=== PATIENT | female | born 1940 | race Caucasian/White ===

== ENCOUNTER → 2017-05-09 | Outpatient (CLI) | payer BC ==
[~2017-05-09] MED LIST: ASCA500 PO; ASPI1TAB83 PO; CETICHW4 PO; CHOLTAB3 PO; COQ10100 PO; EVEN500C2 PO; IPRA0.037 NAE; LEVO100T48 PO; MEGA B COMPLEX PO; OAT BRAN PO; OMEG10007 PO; TAMO20TA47 PO; VITA400C15 PO; [UNRECOGNIZED DRUG - OTHER] PO; lecithin PO; selenium PO
[2017-05-09 10:31] LABS: BASO ABS # 0.05 K/uL (0-0.2); COMPLETE YES; EOS % 1.8 %; HEMATOCRIT 39.9 % (37-47); LYMPH % 34.3 %; MEAN CELL VOLUME 95.9 fL (80-100); MEAN CORPUSCULAR HEMOGLOBIN 31.7 pg (25-34); MEAN CORPUSCULAR HGB CONC 33.1 g/dl (32-36); MONO % 7.1 %; NEUT % 55.8 %; PLATELET COUNT 160 K/uL (130-400); RED BLOOD COUNT 4.16 M/uL (4.2-5.4); WHITE BLOOD COUNT 4.95 K/uL (4.8-10.8)
[2017-05-09 10:58] LABS: ESTIMATED AVERAGE GLUCOSE 120 mg/dl; HA1C FLAG Normal (Normal)
[2017-05-09 11:04] LABS: ALB/GLOB RATIO 1.2 (0.9-2); ALKALINE PHOSPHATASE 109 U/L (45-117); ALT/SGPT 22 U/L (12-78); AST/SGOT 14 U/L (15-37); BLOOD UREA NITROGEN 13 mg/dl (7-18); BUN/CREATININE RATIO 23.1 (10-20); CALCIUM 8.6 mg/dl (8.5-10.1); CARBON DIOXIDE 29 mmol/L (21-32); CHLORIDE 110 mmol/L (98-107); CHOLESTEROL 197 mg/dl (0-200); CHOLESTEROL/HDL RATIO 3.5; CREATININE 0.57 mg/dl (0.60-1.20); GLUCOSE 106 mg/dl (70-99); HDL CHOLESTEROL 57 mg/dl; LDL CHOLESTEROL CALCULATED 129 mg/dl; POTASSIUM 4.2 mmol/L (3.5-5.1); SODIUM 143 mmol/L (136-145); TRIGLYCERIDES 56 mg/dl (0-150); URIC ACID 4.2 mg/dl (2.6-7.2); VERY LOW DENSITY LIPOPROT CALC 11 mg/dl
[2017-05-09 11:11] LABS: TOTAL IRON BINDING CAPACITY 329 mcg/dl (250-450)
== END | disposition home or self-care (01) ==
LOC: C.LAB 09:46
PROVIDERS: ATTEND Family Medicine
DX: R73.09 Other abnormal glucose (principal); E55.9 Vitamin D deficiency, unspecified; D51.9 Vitamin B12 deficiency anemia, unspecified; E78.9 Disorder of lipoprotein metabolism, unspecified; R53.83 Other fatigue

== ENCOUNTER 2023-06-22 10:01 | Inpatient (IN) ==
[2023-06-22 11:39] LABS: Basophils # (auto) 0.03 K/uL (0.00-0.20); Basophils % (auto) 0.3 %; Hematocrit (blood only) 45.5 % (37.0-47.0); Hemoglobin 15.4 g/dl (12.0-16.0); Immature Granulocytes # (auto) 0.03 K/uL (0.01-0.20); Immature Granulocytes % (auto) 0.3 %; Lymphocytes # (auto) 1.43 K/uL (1.20-3.40); Lymphocytes % (auto) 13.5 %; Mean Corpuscular Hemoglobin 32.2 pg (25.0-34.0); Mean Corpuscular Hgb Conc 33.8 g/dL (32.0-36.0); Mean Corpuscular Volume 95.2 fL (80.0-100.0); Mean Platelet Volume 10.2 fL (9.4-12.4); Monocytes # (auto) 1.15 K/uL (0.11-0.59); Monocytes % (auto) 10.9 %; Neutrophils # (auto) 7.95 K/uL (1.40-6.50); Platelet Count 204 K/uL (130-400); RDW Coefficient of Variation 12.5 % (11.5-14.5); RDW Standard Deviation 43.9 fL (36.4-46.3); Red Blood Count 4.78 M/uL (4.20-5.40); White Blood Count 10.59 K/ul (4.8-10.8)
[2023-06-22 11:54] LABS: Albumin Globulin Ratio 1.4 (0.9-2); Albumin Level 4.4 gm/dl (3.4-5.0); BUN Creatinine Ratio 35.2 (10-20); Bilirubin,Total 0.7 mg/dl (0.2-1.0); Calcium 9.8 mg/dl (8.6-10.3); Creatinine Clr Calc Pharmacy 46.1 ml/min; Est GFR (African American) 69.1 ml/min; Est GFR (Non-African American) 59.6 ml/min; Globulin 3.2 gm/dl (2.5-4.0); Potassium 4.1 mmol/L (3.5-5.1); Total Protein 7.6 gm/dl (6.0-8.3)
[2023-06-22] MEDS ORDERED: ONDANSETRON INJ 2 MG/ML 2 ML VIAL IV STA (11:59)
[2023-06-22] MEDS ORDERED: SODIUM CHLORIDE 0.9% 1,000 ML IV ONE (11:59)
--- NOTE | 2023-06-22 12:02 | Emergency Department Note ---
Impression & Plan SBO (small bowel obstruction) ADMIT ED Provider Note HPI: History obtained from patient. The patient is a 82-year-old female who presents emergency department with chief complaint of nausea and vomiting as well as mid abdominal pain has been ongoing since Friday evening. Patient states that she has not had much to eat or drink since because she has not been interested secondary to her nausea. Patient states she is having regular bowel movements. On arrival here to the ED, the patient is in no acute distress. She is hemodynamically stable. Admits to surgical history of cholecystectomy as well as right-sided ovary removal secondary to a torsion years ago. Patient denies any chest pain or shortness of breath. Patient is saturating well on room air on arrival, she is afebrile on arrival. ROS: - Per HPI Differential Diagnosis: Small bowel obstruction, diverticulitis, kidney stone, acute appendicitis, viral gastroenteritis, acute gastritis, acute pancreatitis, amongst other potential pathologies. *Outpatient medications and allergy history reviewed. 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 Lab work shows no leukocytosis, hemoglobin is normal, platelet count is normal, CMP does not show any critical findings, BUN is mildly elevated at 32, lactic acid is normal, lipase is normal. CT imaging of the abdomen pelvis was obtained that shows evidence of a high-grade small bowel obstruction with transition point in the right lower quadrant. I discussed this with the patient and her family member at the bedside, recommended admission to the medicine service with surgical consultation and placement of NG tube. Patient is in agreement. NG tube was placed by the bedside RN, x-ray imaging shows NG tube terminating near the GE junction and therefore will be advanced 5 cm. Case was discussed with the on-call hospitalist, Dr. Chu, who is in agreement for admission of the patient. Case was also discussed with general surgery, Dr. Monsivais, who is in agreement with this plan and for routine consultation. Patient was placed for admission in stable condition. Consultants/Discussions held with other healthcare providers: -Hospitalist, Dr. Chu -General surgery, Dr. Monsivais Disposition discussion held by myself with: -Patient Diagnosis: 1. Small bowel obstruction, acute 2. Nausea and vomiting, acute 3. Elevated BUN, acute Disposition: Admission Stuart Dial DO Emergency Medicine Past Med/Surg History Medical History (Updated 06/22/23 @ 15:30 by Stuart Dial DO) Contact dermatitis History of tobacco abuse Abnormal finding on lung imaging Thickened endometrium Postmenopausal bleeding Abnormal mammogram Uterine leiomyoma Positive colorectal cancer screening using Cologuard test Ovarian cyst HX OF Hypothyroidism Cancer RT BREAST CANCER Anxiety Sleep apnea BIPAP Surgical History (Updated 06/22/23 @ 15:15 by Khalif Austin PA-C) Hx of cataract surgery History of endoscopic sinus surgery History of bilateral tubal ligation History of mastectomy RT History of open reduction and internal fixation (ORIF) procedure RT H/O oophorectomy RT History of colonoscopy History of cholecystectomy History of thyroidectomy, total History of tooth extraction Family History Grandfather (Paternal) Diabetes Aunt Breast cancer Mother Cerebral artery occlusion Heart disease Father Alcohol abuse Brother Diabetes Myocardial infarction, Onset Age: 47 Denies family history of Ovarian cancer Prostate cancer Lung cancer Colorectal cancer Lung disease Stroke Social History (Updated 04/15/23 @ 11:35 by Cary Mann LPN) Smoking Status: Former smoker Tobacco Type: Cigarettes Age Started Using Tobacco: 21; Age Quit Using Tobacco: 65; Second Hand Exposure: No; Do You Dip or Chew Tobacco: No; Hx Alcohol Use: Yes Alcohol type: wine Alcohol Intake Frequency: 4 or More x per/Week Hx Substance Use: No Preferred Language: Cuban Communication Ability: Effective Visual Impairment: Limited Hearing Ability: Normal [place] Required: No Beliefs That Will Affect Care: None marital status: Current Living Situation: Alone current occupational status: retired How many Children do You have: 3 Feels Safe at Home: Yes Childhood Exposure to Second-Hand Smoke: Yes Diet: regular caffeine: Yes (2 cups of coffee daily ) Dental Care, Regularly: No Physical Activity Frequency: Daily Seatbelt Use: always Sunscreen Use: No Assistive Devices: BiPap, Denture - Upper, Denture - Lower and Glasses Allergies Allergies Allergy/AdvReac Type Severity Reaction Status Date / Time chocolate flavor AdvReac Mild HEADACHE/DI Verified 06/04/23 14:01 ARRHEA cat dander AdvReac Verified 06/04/23 14:01 dog dander AdvReac Verified 06/04/23 14:01 grass pollen AdvReac Verified 06/04/23 14:01 mold AdvReac Verified 06/04/23 14:01 tree and shrub pollen AdvReac Verified 06/04/23 14:01 Home Meds Home Medications Medication Instructions Recorded Confirmed Lactobacillus acidophilus 10 1 cap PO DAILY 08/07/18 06/22/23 billion cell capsule (Probiotic) cetirizine 10 mg tablet (Zyrtec) 10 mg PO DAILY PRN NEEDED 08/07/18 06/22/23 coQ10 (ubiquinol) 100 mg capsule 100 mg PO DAILY 08/07/18 06/22/23 evening primrose oil 500 mg capsule 500 mg PO DAILY 08/07/18 06/22/23 lecithin 1,200 mg capsule 1,200 mg PO DAILY 08/07/18 06/22/23 omega 5-pke-sbi-fish oil 1,000 mg 1 cap PO DAILY 08/07/18 06/22/23 (120 mg-180 mg) capsule (Fish Oil) resveratrol 50 mg capsule 1 cap PO DAILY 08/07/18 06/22/23 selenium 200 mcg capsule 200 mcg PO DAILY 08/07/18 06/22/23 ascorbic acid (vitamin C) 500 mg 500 mg PO DAILY 05/06/22 06/22/23 tablet (Vitamin C) cholecalciferol (vitamin D3) 50 50 mcg PO DAILY 05/06/22 06/22/23 mcg (2,000 unit) capsule cyanocobalamin (vitamin B-12) 2,500 mcg sublingual WK 05/06/22 06/22/23 2,500 mcg sublingual tablet aspirin 81 mg tablet,delayed 81 mg PO HS 04/15/23 06/22/23 release (Aspir-Low) red yeast rice 600 mg capsule 600 mg PO 4XD 04/15/23 06/22/23 fluticasone propionate 50 2 spray intranasal HS 06/22/23 06/22/23 mcg/actuation nasal spray,suspension (Flonase Allergy Relief) Previous Rx's Medication Instructions Recorded levothyroxine 100 mcg tablet 100 mcg PO DAILY #90 tabs 12/16/22 blood pressure monitor (Blood #1 ea 06/09/23 Pressure Kit) Results & Data (ED) Vital Signs Vital Signs - 24 hr 06/22/23 11:02 Temperature 37.2 C Temperature Source Temporal Artery Scan Pulse Rate 88 Respiratory Rate 18 Blood Pressure 157/87 H Blood Pressure Mean 110 Pulse Oximetry 95 Oxygen Delivery Method Room Air Sepsis New/Unexplained Change in Mental Status No Sepsis Action Taken by Nursing No Action Required Laboratory Data 06/22/23 11:15 06/22/23 11:15 Lab Results 06/22/23 06/22/23 Range/Units 11:15 13:19 WBC 10.59 (4.8-10.8) K/ul RBC 4.78 (4.20-5.40) M/uL Hgb 15.4 (12.0-16.0) g/dl Hct 45.5 (37.0-47.0) % MCV 95.2 (80.0-100.0) fL MCH 32.2 (25.0-34.0) pg MCHC 33.8 (32.0-36.0) g/dL RDW Std Deviation 43.9 (36.4-46.3) fL RDW Coeff of Julita 12.5 (11.5-14.5) % Plt Count 204 (130-400) K/uL MPV 10.2 (9.4-12.4) fL Immature Gran % (Auto) 0.3 % Neut % (Auto) 75.0 % Lymph % (Auto) 13.5 % [place] % (Auto) 10.9 % Eos % (Auto) 0.0 % Baso % (Auto) 0.3 % Neut # (Auto) 7.95 H (1.40-6.50) K/uL Lymph # (Auto) 1.43 (1.20-3.40) K/uL [place] # (Auto) 1.15 H (0.11-0.59) K/uL Eos # (Auto) 0.00 (0.00-0.50) K/uL Baso # (Auto) 0.03 (0.00-0.20) K/uL Immature Gran # (Auto) 0.03 (0.01-0.20) K/uL Sodium 138 (136-145) mmol/L Potassium 4.1 (3.5-5.1) mmol/L Chloride 100 (98-107) mmol/L Carbon Dioxide 28 (21-32) mmol/L Anion Gap 10 (3-11) BUN 32 H (6-23) mg/dl Creatinine 0.91 (0.6-1.2) mg/dl Est Cr Clr Drug Dosing 46.1 ml/min Est GFR ( Amer) 69.1 ml/min Est GFR (Non-Af Amer) 59.6 ml/min BUN/Creatinine Ratio 35.2 H (10-20) Glucose 139 H (70-99(Fasting)) mg/dl Lactate 1.5 (0.4-2.0) mmol/L Calcium 9.8 (8.6-10.3) mg/dl Total Bilirubin 0.7 (0.2-1.0) mg/dl AST 19 (13-39) U/L ALT 13 (7-52) U/L Alkaline Phosphatase 115 H (34-104) U/L Total Protein 7.6 (6.0-8.3) gm/dl Albumin 4.4 (3.4-5.0) gm/dl Globulin 3.2 (2.5-4.0) gm/dl Albumin/Globulin Ratio 1.4 (0.9-2) Lipase 11 (11-82) U/L Administered Medications Discontinued Medications Sodium Chloride (Nss) 1,000 mls @ 999 mls/hr IV .Q1H1M ONE Stop: 06/22/23 12:59 Last Infusion: 06/22/23 13:43 Dose: Infused Documented By: Admin: 06/22/23 12:08 Dose: 999 mls/hr Documented By: EMILY Ioversol (Optiray 320 100ml) 94 ml IV ONCE ONE Stop: 06/22/23 12:34 Last Admin: 06/22/23 12:36 Dose: 94 ml Documented By: JUNITO Ondansetron HCl (Ondansetron Inj 2 Mg/Ml 2 Ml Vial) 4 mg IV NOW STA Stop: 06/22/23 12:00 Last Admin: 06/22/23 12:08 Dose: 4 mg Documented By: EMILY Imaging Data Radiologist's Impression: Abdomen/Pelvis CT 06/22/23 12:[address] WITH IV CONTRAST CT DOSE: 924.39 mGy.cm HISTORY: mid abd pain, N/V x 2 days TECHNIQUE: Multiaxial CT images of the abdomen and pelvis were performed following the use of intravenous contrast. A dose lowering technique was utilized adhering to the principles of ALARA. COMPARISON STUDY: None. FINDINGS: Emphysema and mild dependent changes seen at the lung bases. Small fat-containing bilateral Bochdalek hernias are noted. A few tree-in-bud nodular opacities within the right lower lobe suggestive of a low-grade bronchiolitis. No pneumoperitoneum. No pneumatosis. No acute fractures identified. There is a partially visualized right breast implant. Mild circumferential thickening of the distal esophagus with a small hiatus hernia. This favors a mild esophagitis. There are 2 diverticula within the duodenum measuring up to 4.6 cm. Multiple dilated loops of proximal to mid small bowel containing gas and fluid. There is associated mild mesenteric edema within the dilated loops of small bowel. These measure up to 4 cm in diameter. Focal transition point within the proximal ileum at the right lower quadrant on image 233. Therefore, this is consistent with a small bowel obstruction. The exact etiology of the transition point is not clearly identified and could be due to adhesions or possibly an internal hernia. The mid to distal ileal loops are decompressed beyond the transition point. Trace pelvic free fluid. Bladder wall thickening may be due to underdistention. Partially calcified uterine fibroids are noted. Colonic diverticulosis. No evidence for acute diverticulitis. Normal appendix. Prior cholecystectomy. The liver, spleen, adrenal glands, pancreas, and kidneys are within normal limits. A 4 mm stone versus contrast within the lower pole of the right renal collecting system. No hydronephrosis. The main portal vein is patent. Focal narrowing of approximately 60% within the superior mesenteric vein on image 121. Calcified plaque within the normal caliber abdominal aorta. Atherosclerotic disease versus an old focal chronic dissection within the mid abdominal aorta. IMPRESSION: 1. High-grade small bowel obstruction with the transition point located within the right lower quadrant as described above. 2. Mild circumferential thickening of the distal esophagus suggestive of a mild esophagitis. 3. Possible right-sided nephrolithiasis. No ureteral stones. No hydronephrosis. 4. Normal appendix. 5. Colonic diverticulosis. No evidence for acute diverticulitis. 6. Mild mesenteric edema and trace pelvic free fluid. 7. Prior cholecystectomy. 8. Additional findings as described above. ACT 112: Negative or not required by law. Electronically signed by: Khalif Snow M.D. 06/22/2023 12:52 PM KUB X-Ray 06/22/23 13:51 KUB HISTORY: NG Tube Placement COMPARISON: Abdomen and pelvis CT 06/22/2023. FINDINGS: Dilated loops of small bowel again noted consistent the patient's small bowel obstruction. Prior cholecystectomy. Nasogastric tube terminates at the expected location of the gastroesophageal junction. This should be advanced by approximately 5 to 10 cm. No renal calculi. No ureteral calculi. No pneumoperitoneum or pneumatosis. IMPRESSION: 1. Nasogastric tube terminates at the gastroesophageal junction. This should be advanced by approximately 5 to 10 cm. 2. Small bowel obstruction again noted. ACT 112: Negative or not required by law. Electronically signed by: Khalif Snow M.D. 06/22/2023 2:27 PM Discharge Plan Visit Data Chief Complaint: Vomiting Stated Complaint: VOMITING ED Provider: Stuart Dial Discharge Problem: SBO (small bowel obstruction) Forms Stand Alone Forms: [facility] Prescriptions Prescriptions: No Action levothyroxine 100 mcg tablet 100 mcg PO DAILY Qty: 90 3RF (DME) blood pressure monitor [Blood Pressure Kit] Kit See Rx Instructions .Route Qty: 1 0RF Rx Instructions: As directed cholecalciferol (vitamin D3) 50 mcg (2,000 unit) capsule 50 mcg PO DAILY evening primrose oil 500 mg Capsule 500 mg PO DAILY cetirizine [Zyrtec] 10 mg Tablet 10 mg PO DAILY PRN (Reason: NEEDED) lecithin 1,200 mg Capsule 1,200 mg PO DAILY omega 2-vry-jmc-fish oil [Fish Oil] 1,000 mg (120 mg-180 mg) Capsule 1 cap PO DAILY selenium 200 mcg Capsule 200 mcg PO DAILY resveratrol 50 mg Capsule 1 cap PO DAILY coQ10 (ubiquinol) 100 mg Capsule 100 mg PO DAILY Probiotic 10 billion cell Capsule 1 cap PO DAILY ascorbic acid (vitamin C) [Vitamin C] 500 mg tablet 500 mg PO DAILY cyanocobalamin (vitamin B-12) 2,500 mcg tablet, sublingual 2,500 mcg SUBLINGUAL WK aspirin [Aspir-Low] 81 mg tablet,delayed release (DR/EC) 81 mg PO HS Rx Instructions: 3 times a week red yeast rice 600 mg capsule 600 mg PO 4XD fluticasone propionate [Flonase Allergy Relief] 50 mcg/actuation spray,suspension 2 spray INTRANASAL HS Referrals Referrals: Martinez Nogueira MD [Primary Care Provider] -
[2023-06-22] MEDS ORDERED: OPTIRAY 320 100ml IV ONE (12:33)
--- NOTE | 2023-06-22 12:54 | CT Scan Report ---
ABDOMEN AND PELVIS CT WITH IV CONTRAST CT DOSE: 924.39 mGy.cm HISTORY: mid abd pain, N/V x 2 days TECHNIQUE: Multiaxial CT images of the abdomen and pelvis were performed following the use of intrave nous contrast. A dose lowering technique was utilized adhering to the principles of ALARA. COMPARISON STUDY: None. FINDINGS: Emphysema and mild dependent changes seen at the lung bases. Small fat-containing bilateral Bochdalek hernias are noted. A few tree-in-bud nodular opacities within the right lower lobe suggest keith of a low-grade bronchiolitis. No pneumoperitoneum. No pneumatosis. No acute fractures identified. There is a partially visualized right breast implant. Mild circumferential thickening of the distal esophagus with a small hiatus hernia. This favors a mild esophagitis. There are 2 diverticula within the duodenum measuring up to 4.6 cm. Multiple dilated loops of proximal to mid small bowel containing gas and fluid. There is associated mild mesenteric edema within the dilated loops of small bowel. Th david measure up to 4 cm in diameter. Focal transition point within the proximal ileum at the right low er quadrant on image 233. Therefore, this is consistent with a small bowel obstruction. The exact marlen ology of the transition point is not clearly identified and could be due to adhesions or possibly an internal hernia. The mid to distal ileal loops are decompressed beyond the transition point. Trace pe lvic free fluid. Bladder wall thickening may be due to underdistention. Partially calcified uterine f ibroids are noted. Colonic diverticulosis. No evidence for acute diverticulitis. Normal appendix. Theresa or cholecystectomy. The liver, spleen, adrenal glands, pancreas, and kidneys are within normal limits . A 4 mm stone versus contrast within the lower pole of the right renal collecting system. No hydrone phrosis. The main portal vein is patent. Focal narrowing of approximately 60% within the superior mes enteric vein on image 121. Calcified plaque within the normal caliber abdominal aorta. Atheroscleroti c disease versus an old focal chronic dissection within the mid abdominal aorta. IMPRESSION: 1. High-grade small bowel obstruction with the transition point located within the right lower quadra nt as described above. 2. Mild circumferential thickening of the distal esophagus suggestive of a mild esophagitis. 3. Possible right-sided nephrolithiasis. No ureteral stones. No hydronephrosis. 4. Normal appendix. 5. Colonic diverticulosis. No evidence for acute diverticulitis. 6. Mild mesenteric edema and trace pelvic free fluid. 7. Prior cholecystectomy. 8. Additional findings as described above. ACT 112: Negative or not required by law. Electronically signed by: Khalif Snow M.D. 06/22/2023 12:52 PM
--- NOTE | 2023-06-22 13:53 | History & Physical Report ---
Date of Service June 22, 2023 Assessment & Plan (1) Small bowel obstruction: Plan: Mid abdominal pain, nausea, and vomiting since Wednesday 06/20 Last BM on Thursday 06/21 CT abdomen/pelvis on arrival revealed high-grade SBO No leukocytosis; afebrile Lactate WNL at 1.5 Lipase WNL at 11 General surgery consulted; nonoperative management for now No indications for immediate surgical intervention such as bowel ischemia, bowel volvulus, necrosis, or perforation Keep on heparin for DVT PPx in the event that surgical intervention is necessary Keep n.p.o.; hold p.o. meds NG tube placed in the ED Advance NG tube as indicated with KUB post-advancement Procalcitonin, CRP pending (to be used as biomarkers for nonoperative management) ?Consider Gastrografin; therapeutic/diagnostic Fluid resuscitation with LR Electrolytes WNL; keep K>4, Mag>2 Prophylactic abx not indicated at this time Zofran 4 mg IV q6h as needed for nausea; QTc 416 A.m. CBC, BMP, CRP, Mag (2) VALENTIN (obstructive sleep apnea): Plan: Patient reports using CPAP at night with a full facemask No other at home oxygen use Continue Flonase prior to CPAP usage (3) Hypertension: Plan: BP 157/87 at time of admission Not on antihypertensives at home PCP recently asked her to use an at-home BP cuff given increased readings in the outpatient setting Hydralazine 2.5mg IV q6h as needed for SBP >180 (4) Hypothyroidism: Plan: Hold levothyroxine (5) History of mastectomy: Plan: Right-sided mastectomy in 2010 No BP, labs, blood work in right arm Plan Disposition: Admit to [facility] Full code Keep n.p.o. VTE PPx: Heparin 5000u q12h History of Present Illness Chief Complaint: Vomiting Primary Care Provider: Martinez Nogueira MD Mae is an 82-year-old female with PMH of HTN, breast cancer, hypothyroidism, HLD, osteopenia, VALENTIN, right-sided ovarian torsion, s/p cholecystectomy, and COPD with emphysema. She presented for abdominal pain and multiple episodes of vomiting since Friday evening 06/20. She reports that she felt stomach discomfort after eating lunch on Friday, and then started vomiting that evening. She reports no blood in the vomit, but says it was a "dark brown color". She has not been taking her usual medications due to nausea and vomiting. No morning medications. She has not been tolerating solids/liquids; however she has been tolerating sips of water. She does not endorse abdominal pain, but describes it as "discomfort" and cramping in the periumbilical region. Last BM was yesterday 06/21, and she reports that she has had 3 bowel movements between Friday and Friday. She does not know if she is passing gas regularly. She does not feel bloated. No radiation of pain to the flanks, back, or down the legs. If she had to rate her intermittent stomach discomfort she says it is a 5/10. Burping alleviates some of the tension. No sick contacts this past week. She reports using the CPAP at night with a full facemask. No other at home oxygen use. She denies smoking and tobacco use. She endorses mild alcohol use, 1 glass of wine/day. Patient is afebrile and hemodynamically stable at time of admission. ED course: Zofran 4 mg IV NSS 1000 mL ROS: Patient endorses mild fever (on Thursday 06/21 99.3), abdominal cramping/discomfort Patient denies headache, dizziness, CP, chest palpitations, pleuritic CP, hematemesis, diarrhea, blood in stool/urine, burning with urination, urinary s/s, urinary retention, saddle anesthesia, or numbness/tingling/pain in the legs. PMH of cholecystectomy, right ovarian torsion, right-sided mastectomy in 2010 No PMH of appendectomy, hernias, kidney stones, C-sections, CA, DVT/PE, CVA, or diabetes. Allergies Allergy/AdvReac Type Severity Reaction Status Date / Time chocolate flavor AdvReac Mild HEADACHE/DI Verified 06/04/23 14:01 ARRHEA cat dander AdvReac Verified 06/04/23 14:01 dog dander AdvReac Verified 06/04/23 14:01 grass pollen AdvReac Verified 06/04/23 14:01 mold AdvReac Verified 06/04/23 14:01 tree and shrub pollen AdvReac Verified 06/04/23 14:01 Home Medications Medication Instructions Recorded Confirmed Type Lactobacillus acidophilus 10 1 cap PO DAILY 08/07/18 06/22/23 History billion cell capsule (Probiotic) cetirizine 10 mg tablet (Zyrtec) 10 mg PO DAILY PRN NEEDED 08/07/18 06/22/23 History coQ10 (ubiquinol) 100 mg capsule 100 mg PO DAILY 08/07/18 06/22/23 History evening primrose oil 500 mg capsule 500 mg PO DAILY 08/07/18 06/22/23 History lecithin 1,200 mg capsule 1,200 mg PO DAILY 08/07/18 06/22/23 History omega 0-uzn-jfl-fish oil 1,000 mg 1 cap PO DAILY 08/07/18 06/22/23 History (120 mg-180 mg) capsule (Fish Oil) resveratrol 50 mg capsule 1 cap PO DAILY 08/07/18 06/22/23 History selenium 200 mcg capsule 200 mcg PO DAILY 08/07/18 06/22/23 History ascorbic acid (vitamin C) 500 mg 500 mg PO DAILY 05/06/22 06/22/23 History tablet (Vitamin C) cholecalciferol (vitamin D3) 50 50 mcg PO DAILY 05/06/22 06/22/23 History mcg (2,000 unit) capsule cyanocobalamin (vitamin B-12) 2,500 mcg sublingual WK 05/06/22 06/22/23 History 2,500 mcg sublingual tablet levothyroxine 100 mcg tablet 100 mcg PO DAILY #90 tabs 12/16/22 06/22/23 Rx aspirin 81 mg tablet,delayed 81 mg PO HS 04/15/23 06/22/23 History release (Aspir-Low) red yeast rice 600 mg capsule 600 mg PO 4XD 04/15/23 06/22/23 History blood pressure monitor (Blood #1 ea 06/09/23 06/22/23 Rx Pressure Kit) fluticasone propionate 50 2 spray intranasal HS 06/22/23 06/22/23 History mcg/actuation nasal spray,suspension (Flonase Allergy Relief) Past Med/Surg History Medical History (Updated 06/22/23 @ 15:30 by Stuart Dial DO) Contact dermatitis History of tobacco abuse Abnormal finding on lung imaging Thickened endometrium Postmenopausal bleeding Abnormal mammogram Uterine leiomyoma Positive colorectal cancer screening using Cologuard test Ovarian cyst HX OF Hypothyroidism Cancer RT BREAST CANCER Anxiety Sleep apnea BIPAP Surgical History (Updated 06/22/23 @ 15:15 by Khalif Austin PA-C) Hx of cataract surgery History of endoscopic sinus surgery History of bilateral tubal ligation History of mastectomy RT History of open reduction and internal fixation (ORIF) procedure RT H/O oophorectomy RT History of colonoscopy History of cholecystectomy History of thyroidectomy, total History of tooth extraction Family History Grandfather (Paternal) Diabetes Aunt Breast cancer Mother Cerebral artery occlusion Heart disease Father Alcohol abuse Brother Diabetes Myocardial infarction, Onset Age: 47 Denies family history of Ovarian cancer Prostate cancer Lung cancer Colorectal cancer Lung disease Stroke Social History (Updated 04/15/23 @ 11:35 by Cary Mann LPN) Smoking Status: Former smoker Tobacco Type: Cigarettes Age Started Using Tobacco: 21; Age Quit Using Tobacco: 65; Second Hand Exposure: No; Do You Dip or Chew Tobacco: No; Hx Alcohol Use: Yes Alcohol type: wine Alcohol Intake Frequency: 4 or More x per/Week Hx Substance Use: No Preferred Language: Romanian Communication Ability: Effective Visual Impairment: Limited Hearing Ability: Normal Club Car Attendant Required: No Beliefs That Will Affect Care: None marital status: Current Living Situation: Alone current occupational status: retired How many Children do You have: 3 Feels Safe at Home: Yes Childhood Exposure to Second-Hand Smoke: Yes Diet: regular caffeine: Yes (2 cups of coffee daily ) Dental Care, Regularly: No Physical Activity Frequency: Daily Seatbelt Use: always Sunscreen Use: No Assistive Devices: CPAP Review of Systems Review of Systems: See HPI above Physical Exam Physical Exam: General: no acute distress; anxious; NG tube in place; non-toxic appearing; cooperative; 95% on RA HEENT: normocephalic, atraumatic; no scleral icterus; PERRLA w/ EOMs intact; moist mucus membrane; vision and hearing grossly intact Neck: supple; no JVD; no lymphadenopathy; trachea midline Skin: warm, dry without signs of tenting; no cyanosis; no rashes, bruising, lesions, or erythema noted CV: chest wall NTP; RRR; S1/S2 normal; no murmurs/rubs/gallops; pulses intact and symmetric at radial, DP, and PT Lungs: no acute respiratory distress; symmetrical chest wall expansion; clear breath sounds across all lung casper w/o adventitious sounds; no wheezing ABD: Soft, NTP; BS present in all 4 quadrants; no rebound/guarding; no ascites; mild generalized distention; no bruising or signs of internal bleeding; Negative CVA tenderness; negative psoas sign; negative Rovsing sign MSK: no tics or fasciculations; no edema noted in the LEs b/l, nonerythematous Neuro: A&Ox3; normal mood and affect; fluent speech; sensation grossly intact Results & Data Results & Data Vital Signs (Past 12 Hours) Vital Signs Temp Pulse Resp BP Pulse Ox O2 Del Method 06/22/23 11:02 37.2 C 88 18 157/87 H 95 Room Air Laboratory Results Abnormal lab results 06/22/23 Range/Units 11:15 Neut # (Auto) 7.95 H (1.40-6.50) K/uL [place] # (Auto) 1.15 H (0.11-0.59) K/uL BUN 32 H (6-23) mg/dl BUN/Creatinine Ratio 35.2 H (10-20) Glucose 139 H (70-99(Fasting)) mg/dl Alkaline Phosphatase 115 H (34-104) U/L Diagnostic Findings Abdomen/Pelvis CT 06/22/23 12:[address] WITH IV CONTRAST CT DOSE: 924.39 mGy.cm HISTORY: mid abd pain, N/V x 2 days TECHNIQUE: Multiaxial CT images of the abdomen and pelvis were performed following the use of intravenous contrast. A dose lowering technique was utilized adhering to the principles of ALARA. COMPARISON STUDY: None. FINDINGS: Emphysema and mild dependent changes seen at the lung bases. Small fat-containing bilateral Bochdalek hernias are noted. A few tree-in-bud nodular opacities within the right lower lobe suggestive of a low-grade bronchiolitis. No pneumoperitoneum. No pneumatosis. No acute fractures identified. There is a partially visualized right breast implant. Mild circumferential thickening of the distal esophagus with a small hiatus hernia. This favors a mild esophagitis. There are 2 diverticula within the duodenum measuring up to 4.6 cm. Multiple dilated loops of proximal to mid small bowel containing gas and fluid. There is associated mild mesenteric edema within the dilated loops of small bowel. These measure up to 4 cm in diameter. Focal transition point within the proximal ileum at the right lower quadrant on image 233. Therefore, this is consistent with a small bowel obstruction. The exact etiology of the transition point is not clearly identified and could be due to adhesions or possibly an internal hernia. The mid to distal ileal loops are decompressed beyond the transition point. Trace pelvic free fluid. Bladder wall thickening may be due to underdistention. Partially calcified uterine fibroids are noted. Colonic diverticulosis. No evidence for acute diverticulitis. Normal appendix. Prior cholecystectomy. The liver, spleen, adrenal glands, pancreas, and kidneys are within normal limits. A 4 mm stone versus contrast within the lower pole of the right renal collecting system. No hydronephrosis. The main portal vein is patent. Focal narrowing of approximately 60% within the superior mesenteric vein on image 121. Calcified plaque within the normal caliber abdominal aorta. Atherosclerotic disease versus an old focal chronic dissection within the mid abdominal aorta. IMPRESSION: 1. High-grade small bowel obstruction with the transition point located within the right lower quadrant as described above. 2. Mild circumferential thickening of the distal esophagus suggestive of a mild esophagitis. 3. Possible right-sided nephrolithiasis. No ureteral stones. No hydronephrosis. 4. Normal appendix. 5. Colonic diverticulosis. No evidence for acute diverticulitis. 6. Mild mesenteric edema and trace pelvic free fluid. 7. Prior cholecystectomy. 8. Additional findings as described above. ACT 112: Negative or not required by law. Electronically signed by: Khalif Snow M.D. 06/22/2023 12:52 PM Code Status & VTE Plan Code Status Full code VTE Prophylaxis Plan VTE Prophylaxis will be ordered: Yes Supervising Physician Co-Signing Physician Notes Patient seen and examined, chart reviewed, case discussed with Khalif Austin PA-C and I agree with the assessment and plan as above except as otherwise noted Labs and images reviewed 82-year-old female history of hypertension, breast cancer, hypothyroidism, right-sided ovarian torsion, s/p cholecystectomy, COPD, and emphysema who presents with abdominal pain and vomiting for around 2 days and he was found to have a high-grade small bowel obstruction in the right lower quadrant. Surgery was consulted. N.p.o., NGT in place to LIS. NGT is placed however is approximately 5 to 10 cm proximal of appropriate placement, advanced and reimaging pending.N.p.o. with NGT. If not able to be advanced within 72 hours convert Synthroid to IV. We will add on IV pain control and IV blood pressure control as above. Suspect some hypertension is reactive due to abdominal discomfort. She is not bradycardic. She has no AAKASH. Agree with IV Tylenol, breakthrough hydromorphone scaled 0.5-1 mg every 4 hours for pain. NGT advanced to 62cm at bedside, repeat XR prending to confirm placement. Abd softly distended, NT, no rebound. BS diminished. Agree with assessment and management above PG Care Time/CCT Total # of Minutes Spent Total Time Spent with Patient: Total time spent is greater than 50% in coordination of care (as documented) at patient's floor/unit and/or counseling patient: Coding [place] [address] INT INP/OBS CARE 2/55MIN Patient Type Established Medical Decision Making Moderate Complexity Diagnoses Small bowel obstruction K56.609 VALENTIN (obstructive sleep apnea) G47.33 Hypertension I10 Hypothyroidism E03.9 History of mastectomy Z90.10
--- NOTE | 2023-06-22 14:28 | XRay Report ---
KUB HISTORY: NG Tube Placement COMPARISON: Abdomen and pelvis CT 06/22/2023. FINDINGS: Dilated loops of small bowel again noted consistent the patient's small bowel obstruction. Prior cholecystectomy. Nasogastric tube terminates at the expected location of the gastroesophageal j unction. This should be advanced by approximately 5 to 10 cm. No renal calculi. No ureteral calculi. No pneumoperitoneum or pneumatosis. IMPRESSION: 1. Nasogastric tube terminates at the gastroesophageal junction. This should be advanced by approxima tely 5 to 10 cm. 2. Small bowel obstruction again noted. ACT 112: Negative or not required by law. Electronically signed by: Khalif Snow M.D. 06/22/2023 2:27 PM
[2023-06-22 15:46] LABS: C Reactive Protein 0.81 mg/dl (0-0.5); Magnesium 2.2 mg/dl (1.7-2.4)
[2023-06-22] MEDS ORDERED: CETIRIZINE HCL 10 MG TABLET PO PRN (17:04)
[2023-06-22] MEDS ORDERED: ACETAMINOPHEN 325 MG TAB PO PRN (17:04)
--- NOTE | 2023-06-22 17:12 | XRay Report ---
KUB HISTORY: NG tube advanced COMPARISON: None. FINDINGS: The nasogastric tube has been advanced and likely terminates in the proximal stomach. The f enestrated line is at the expected location of the gastroesophageal junction. This should be advanced by an additional 5 to 10 cm. Small bowel obstruction again noted. Prior cholecystectomy. No renal c alculi. No ureteral calculi. No pneumoperitoneum or pneumatosis. IMPRESSION: The nasogastric tube has been advanced and likely terminates in the proximal stomach. The fenestrated line is at the expected location of the gastroesophageal junction. This should be advanced by an add itional 5 to 10 cm. ACT 112: Negative or not required by law. Electronically signed by: Khalif Snow M.D. 06/22/2023 5:10 PM
[2023-06-22] MEDS: LACTATED RINGER'S 1,000 ML IV SCH (17:23)
[2023-06-22] MEDS ORDERED: ACETAMINOPHEN 1,000 MG/100 ML VIAL IV PRN (17:25)
[2023-06-22] MEDS ORDERED: METOPROLOL TARTRATE 1 MG/ML VIAL IV PRN (17:25)
[2023-06-22] MEDS: hydrALAZINE HCL 20 MG/ML VIAL IV PRN (17:59)
[2023-06-22] MEDS: ONDANSETRON INJ 2 MG/ML 2 ML VIAL IV PRN (19:03)
--- NOTE | 2023-06-22 19:22 | Surgery Consultation ---
Date of Consultation June 22, 2023 Assessment & Plan (1) SBO (small bowel obstruction): Patient has been admitted on the hospital service. From surgical perspective we recommend proceeding as follows: Continue n.p.o. status Continue NG tube to suction. Discontinuation of this modality will be depende nt on improvement of patient's abdominal exam as well as improvement in return of bowel function. I did discuss with the patient that once her NG tube is removed we can consider reinitiating oral intake beginning with sips of clear liquids It is noteworthy to mention that the patient has had multiple KUBs as the patient's NG tube did not appear to be advanced far enough. On most recent KUB it does appear as though the NG tube is in appropriate position Continue IV fluids Follow serial labs Continue analgesics Continue antiemetics I discussed the above plan with my attending physician Dr. Jose Monsivais who agrees with conservative treatment at the present time. Additional recommendations will be forthcoming based on patient's clinical course as it unfolds Supervising Physician Co-Signing Physician Notes I personally saw and evaluated the patient with Steven Wilson PA-C and agree with the assessment and plan 82-year-old female with a small bowel obstruction CT images and results were personally viewed and interpreted by myself She's being admitted to the medical service and an NGT has been placed No plans for acute surgical intervention Will follow her clinical course and abdominal exam History of Present Illness Reason for Consultation: Small bowel obstruction Attending Physician: Yao Chu MD History of Present Illness This is an 82-year-old female who presented to the emergency department at [facility] and was ultimately admitted secondary to 2 days of abdominal bloating. Patient says that she has had persistent associated nausea and vomiting. She denies any fevers, shakes, or chills. She has had prior abdominal surgeries in the form of a cholecystectomy as well as an oophorectomy on the right side secondary to an ovarian torsion. She has never had a small bowel obstruction in the past. Patient says that since admission she has not been passing any flatus. She notes that her most recent bowel movement was yesterday. Since arrival to the hospital patient has had labs and imaging which independent reviewed. CT scan of the abdomen pelvis showed the patient had a high-grade small bowel obstruction with a transition point in the right lower quadrant. The interpreting radiologist could not delineate if the patient's small bowel obstruction is on the basis of adhesions versus possible internal hernia. Labs include a CBC her white blood cell count, hemoglobin, hematocrit, and platelet count were normal. Chemistry profile showed sodium and potassium along with c reatinine were normal. Patient's BUN had a slight elevation at 32. Lactic acid level was nonelevated at 1.5. There is no elevation of patient's bilirubin or transaminases and there was a slight elevation of the alkaline phosphatase at 115. Lipase was nonelevated. At the time of my interview the patient was resting comfortably in bed and she was in no distress Allergies Allergy/AdvReac Type Severity Reaction Status Date / Time chocolate flavor AdvReac Mild HEADACHE/DI Verified 06/04/23 14:01 ARRHEA cat dander AdvReac Verified 06/04/23 14:01 dog dander AdvReac Verified 06/04/23 14:01 grass pollen AdvReac Verified 06/04/23 14:01 mold AdvReac Verified 06/04/23 14:01 tree and shrub pollen AdvReac Verified 06/04/23 14:01 Home Medications Medication Instructions Recorded Confirmed Type Lactobacillus acidophilus 10 1 cap PO DAILY 08/07/18 06/22/23 History billion cell capsule (Probiotic) cetirizine 10 mg tablet (Zyrtec) 10 mg PO DAILY PRN NEEDED 08/07/18 06/22/23 History coQ10 (ubiquinol) 100 mg capsule 100 mg PO DAILY 08/07/18 06/22/23 History evening primrose oil 500 mg capsule 500 mg PO DAILY 08/07/18 06/22/23 History lecithin 1,200 mg capsule 1,200 mg PO DAILY 08/07/18 06/22/23 History omega 0-cqe-vru-fish oil 1,000 mg 1 cap PO DAILY 08/07/18 06/22/23 History (120 mg-180 mg) capsule (Fish Oil) resveratrol 50 mg capsule 1 cap PO DAILY 08/07/18 06/22/23 History selenium 200 mcg capsule 200 mcg PO DAILY 08/07/18 06/22/23 History ascorbic acid (vitamin C) 500 mg 500 mg PO DAILY 05/06/22 06/22/23 History tablet (Vitamin C) cholecalciferol (vitamin D3) 50 50 mcg PO DAILY 05/06/22 06/22/23 History mcg (2,000 unit) capsule cyanocobalamin (vitamin B-12) 2,500 mcg sublingual WK 05/06/22 06/22/23 History 2,500 mcg sublingual tablet levothyroxine 100 mcg tablet 100 mcg PO DAILY #90 tabs 12/16/22 06/22/23 Rx aspirin 81 mg tablet,delayed 81 mg PO HS 04/15/23 06/22/23 History release (Aspir-Low) red yeast rice 600 mg capsule 600 mg PO 4XD 04/15/23 06/22/23 History blood pressure monitor (Blood #1 ea 06/09/23 06/22/23 Rx Pressure Kit) fluticasone propionate 50 2 spray intranasal HS 06/22/23 06/22/23 History mcg/actuation nasal spray,suspension (Flonase Allergy Relief) Patient History Medical History Contact dermatitis History of tobacco abuse Abnormal finding on lung imaging Thickened endometrium Postmenopausal bleeding Abnormal mammogram Uterine leiomyoma Positive colorectal cancer screening using Cologuard test Ovarian cyst HX OF Hypothyroidism Cancer RT BREAST CANCER Anxiety Sleep apnea BIPAP Surgical History Hx of cataract surgery History of endoscopic sinus surgery History of bilateral tubal ligation History of mastectomy RT History of open reduction and internal fixation (ORIF) procedure RT H/O oophorectomy RT History of colonoscopy History of cholecystectomy History of thyroidectomy, total History of tooth extraction Family History Grandfather (Paternal) Diabetes Aunt Breast cancer paternal Mother Cerebral artery occlusion Heart disease Father Alcohol abuse Brother Diabetes Myocardial infarction, Onset Age: 47 Denies family history of Ovarian cancer Prostate cancer Lung cancer Colorectal cancer Lung disease Stroke Social History Smoking Status: Former smoker Tobacco Type: Cigarettes Age Started Using Tobacco: 21; Age Quit Using Tobacco: 65; Second Hand Exposure: No; Do You Dip or Chew Tobacco: No; Hx Alcohol Use: Yes Alcohol type: wine Alcohol Intake Frequency: 4 or More x per/Week Hx Substance Use: No Preferred Language: Greek Communication Ability: Effective Visual Impairment: Limited Hearing Ability: Normal Floor Worker Transfer Bay Required: No Beliefs That Will Affect Care: None marital status: Current Living Situation: Alone current occupational status: retired How many Children do You have: 3 Feels Safe at Home: Yes Childhood Exposure to Second-Hand Smoke: Yes Diet: regular caffeine: Yes (2 cups of coffee daily ) Dental Care, Regularly: No Physical Activity Frequency: Daily Seatbelt Use: always Sunscreen Use: No Assistive Devices: CPAP Review of Systems Constitutional: no fever and no chills Ear, Nose, Mouth, Throat: no hearing loss Respiratory: no cough and no dyspnea Cardiovascular: no chest pain Gastrointestinal: as per Subjective / HPI Genitourinary: no dysuria Musculoskeletal: no back pain Integumentary: no rash Neurologic: no localized weakness Physical Exam Constitutional: well developed and well nourished; no acute distress Eyes: no conjunctival abnormality ENMT: Ears: no hearing impairment and no external ear abnormality Mouth: no oropharynx abnormality Neck: trachea midline Respiratory: normal respiratory effort; no respiratory distress and no labored breathing Cardiovascular: Rate/Rhythm: regular rate and regular rhythm Gastrointestinal (Abdomen): Abdomen is mildly distended but overall soft and nonrigid. Bowel sounds are present. There is slight tympany to percussion. There is no rebound tenderness or guarding. Patient did have some pain with palpation located greatest in the periumbilical region Musculoskeletal: No calf tenderness Skin: no rashes Neurologic: moves all extremities Psychiatric: A+Ox3, euthymic affect Results & Data Vital Signs (Past 12 Hours) Vital Signs Temp Pulse Pulse Resp BP BP Pulse Ox 06/22/23 18:14 168/79 H 06/22/23 17:10 36.5 C 87 18 193/82 H 95 06/22/23 17:04 36.5 C 87 18 193/82 H 95 06/22/23 16:16 84 18 165/96 H 92 06/22/23 11:02 37.2 C 88 18 157/87 H 95 O2 Del Method 06/22/23 18:14 06/22/23 17:10 Room Air 06/22/23 17:04 Room Air 06/22/23 16:16 Room Air 06/22/23 11:02 Room Air PG Care Time/CCT Total # of Minutes Spent Total Time Spent with Patient: Total time spent is greater than 50% in coordination of care (as documented) at patient's floor/unit and/or counseling patient: Coding Level of Care Code 30664 INT INP/OBS CARE MIN Diagnoses SBO (small bowel obstruction) K56.609
[2023-06-22] MEDS: HEPARIN SOD 5,000 UNIT/0.5 ML VIAL SQ SCH (20:53)
[2023-06-22] MEDS: FLUTICASONE PROPIONATE NA SPR 16 GM BTL SCH (20:53)
[2023-06-22] MEDS ORDERED: ASPIRIN 81 MG ECTAB PO SCH (21:00)
[2023-06-22 22:33] LABS: Appearance Urine Clear (Clear); Bacteria Urine Automated Negative (Negative); Bilirubin Urine Negative (Negative); Blood Urine Negative (Negative); Color Urine Yellow; Epithelial Cell Urine Auto >30 /lpf (0-5); Glucose Urine UA Negative (Negative); Ketones Urine 2+ (Negative); Leukocyte Esterase Urine 1+ (Negative); Nitrite Urine Negative (Negative); Protein Urine Trace (Negative); Specific Gravity Urine > 1.045 (1.000-1.030); Urobilinogen Urine Negative (Negative); WBC Urine Automated >30 /hpf (0-5); pH Urine 5.5 (4.5-7.5)
[2023-06-22 23:10] LABS: RBC Urine Automated 0-4 /hpf (0-4)
[2023-06-22] MEDS ORDERED: LABETALOL HCL IV 5 MG/ML 20ML IV STA (23:49)
[2023-06-23] MEDS: hydrALAZINE HCL 20 MG/ML VIAL IV PRN ×3 (02:11→17:09)
[2023-06-23] MEDS ORDERED: hydrALAZINE HCL 20 MG/ML VIAL IV STA ×2 (02:53→04:51)
[2023-06-23] MEDS ORDERED: LABETALOL HCL IV 5 MG/ML 20ML IV STA (05:36)
--- NOTE | 2023-06-23 06:24 | Electrocardiogram Report ---
Test Reason : Blood Pressure : / mmHG Vent. Rate : 086 BPM Atrial Rate : 086 BPM P-R Int : 148 ms QRS Dur : 086 ms QT Int : 348 ms P-R-T Axes : 006 006 059 degrees QTc Int : 416 ms Normal sinus rhythm Anterior infarct (cited on or before 22-JUN-2023) Abnormal ECG When compared with ECG of 09-MAR-2013 14:13, Vent. rate has increased BY 32 BPM Confirmed by Kory Whalen ([id number]) on 06/23/2023 6:24:27 AM Referred By: Martinez Nogueira Confirmed By:Kory Whalen
[2023-06-23 06:28] LABS: Basophils # (auto) 0.03 K/uL (0.00-0.20); Basophils % (auto) 0.4 %; Hematocrit (blood only) 39.6 % (37.0-47.0); Hemoglobin 13.6 g/dl (12.0-16.0); Immature Granulocytes # (auto) 0.03 K/uL (0.01-0.20); Immature Granulocytes % (auto) 0.4 %; Lymphocytes # (auto) 0.96 K/uL (1.20-3.40); Lymphocytes % (auto) 12.9 %; Mean Corpuscular Hgb Conc 34.3 g/dL (32.0-36.0); Mean Corpuscular Volume 93.2 fL (80.0-100.0); Mean Platelet Volume 10.2 fL (9.4-12.4); Monocytes # (auto) 0.74 K/uL (0.11-0.59); Neutrophils # (auto) 5.66 K/uL (1.40-6.50); Neutrophils % (auto) 76.3 %; Platelet Count 161 K/uL (130-400); RDW Coefficient of Variation 12.5 % (11.5-14.5); RDW Standard Deviation 42.9 fL (36.4-46.3); Red Blood Count 4.25 M/uL (4.20-5.40); White Blood Count 7.42 K/ul (4.8-10.8)
[2023-06-23] MEDS ORDERED: LEVOTHYROXINE SODIUM 100 MCG TABLET PO SCH (06:30)
[2023-06-23 06:43] LABS: C Reactive Protein 0.65 mg/dl (0-0.5); Calcium 8.5 mg/dl (8.6-10.3); Creatinine Clr Calc Pharmacy 78.1 ml/min; Est GFR (African American) 103.3 ml/min; Est GFR (Non-African American) 89.1 ml/min; Magnesium 2.1 mg/dl (1.7-2.4); Potassium 3.6 mmol/L (3.5-5.1)
[2023-06-23] MEDS: LACTATED RINGER'S 1,000 ML IV SCH (08:12)
--- NOTE | 2023-06-23 08:18 | Electrocardiogram Report ---
Test Reason : Blood Pressure : / mmHG Vent. Rate : 103 BPM Atrial Rate : 103 BPM P-R Int : 166 ms QRS Dur : 088 ms QT Int : 332 ms P-R-T Axes : 067 019 070 degrees QTc Int : 434 ms Sinus tachycardia Possible Old Anterior infarct (cited on or before 22-JUN-2023) Abnormal ECG When compared with ECG of 22-JUN-2023 15:06, No significant change was found Confirmed by Sina Araujo ([id number]) on 06/23/2023 8:17:26 AM Referred By: Martinez Nogueira Confirmed By:Sina Araujo
[2023-06-23] MEDS ORDERED: ADVANCED PROBIOTIC 1250 MG CAPSULE PO SCH (09:00)
[2023-06-23] MEDS ORDERED: LECITHIN 1200 MG PO SCH (09:00)
[2023-06-23] MEDS: HEPARIN SOD 5,000 UNIT/0.5 ML VIAL SQ SCH ×2 (09:13→20:27)
--- NOTE | 2023-06-23 09:31 | XRay Report ---
XR KUB/Abdomen 1 view CLINICAL HISTORY: NGT placement postadvancement TECHNIQUE: 1 view of the abdomen was obtained. Comparison: Comparison is made to abdomen radiograph 06/22/2023 1803 hours. FINDINGS: Interval advancement of the enteric tube with the side port and tip in the stomach. Degenerative okeefe ges are seen in the visualized skeleton. The bowel gas pattern is nonobstructive. Small stool burden is seen. IMPRESSION: Advancement of the enteric tube with the tip inside port in satisfactory position. ACT 112: Negative or not required by law. Electronically signed by: Manny Donis M.D. 06/23/2023 9:30 AM
--- NOTE | 2023-06-23 11:06 | Surgery Progress Note ---
Date of Service June 23, 2023 Assessment & Plan (1) SBO (small bowel obstruction): Plan: Continue non-operative management at this time Follow abdominal exam She remains without tachycardia or fevers or leukocytosis Keep NPO/NGT Admission and Anticipated Discharge Date Admission Date: June 22, 2023 Subjective Pt seen and examined. Still with abdominal pain. No N/V. No flatus or BM. Afebrile. Review of Systems Constitutional: no fever and no chills Physical Exam Constitutional: WD/WN, vitals as above Gastrointestinal (Abdomen): Inspection/Auscultation: abdomen normal to inspection; abdomen not distended Percussion/Palpation: + abdomen tender (generalized) and abdomen soft; no guarding and abdomen not rigid Results & Data Vital Signs (Past 12 Hours) Vital Signs Temp Pulse Pulse Resp BP BP Pulse Ox 06/23/23 06:01 79 185/76 H 06/23/23 04:57 107 H 06/23/23 04:46 102 H 202/78 H 95 06/23/23 03:48 107 H 18 170/77 H 06/23/23 03:35 106 H 18 168/71 H 06/23/23 03:10 125 H 206/80 H 06/23/23 02:48 97 H 18 206/80 H 06/23/23 02:30 101 H 18 215/99 H 96 06/23/23 02:08 37 C 102 H 18 205/77 H 96 06/23/23 00:42 102 H 92 06/22/23 23:58 100 H 179/78 H 90 06/22/23 23:10 99 H 18 201/73 H 92 O2 Del Method O2 Flow Rate 06/23/23 06:01 06/23/23 04:57 Nasal Cannula 2 06/23/23 04:46 Nasal Cannula 2 06/23/23 03:48 06/23/23 03:35 06/23/23 03:10 06/23/23 02:48 06/23/23 02:30 Nasal Cannula 1 06/23/23 02:08 Nasal Cannula 1 06/23/23 00:42 Room Air 06/22/23 23:58 Room Air 06/22/23 23:10 Room Air PG Care Time/CCT Total # of Minutes Spent Total Time Spent with Patient: Total time spent is greater than 50% in coordination of care (as documented) at patient's floor/unit and/or counseling patient: Coding Level of Care Code 33362 SUB INP/OBS CARE Diagnoses SBO (small bowel obstruction) K56.609
--- NOTE | 2023-06-23 11:59 | Hospitalist Progress Note ---
Date of Service June 23, 2023 Assessment & Plan (1) Small bowel obstruction: Plan: Presents with Mid abdominal pain, nausea, and vomiting since Wednesday 06/20 Last BM on Thursday 06/21 CT abdomen/pelvis on arrival revealed high-grade SBO General surgery consulted; nonoperative management for now Keep n.p.o.; hold p.o. meds NG tube placed in the ED No bowel movements yet and not passing gas yet Appreciate surgery (2) VALENTIN (obstructive sleep apnea): Plan: Patient reports using CPAP at night with a full facemask No other at home oxygen use Continue Flonase prior to CPAP usage (3) Hypertension: Plan: poorly controlled Not on antihypertensives at home PCP recently asked her to use an at-home BP cuff given increased readings in the outpatient setting Hydralazine 2.5mg IV q6h as needed for SBP >180 (4) Hypothyroidism: Plan: Hold levothyroxine (5) History of mastectomy: Plan: Right-sided mastectomy in 2010 No BP, labs, blood work in right arm Plan Disposition: Admit to [facility] Full code Keep n.p.o. VTE PPx: Heparin 5000u q12h Admission and Anticipated Discharge Date Admission Date: June 22, 2023 Subjective Patient seen and examined,Denies abdominal pain but endorses some discomfort, Not passing gas Review of Systems Review of Systems: All systems reviewed are negative, apart from the ones contained in the history. Physical Exam Physical Exam: The patient is awake, alert and oriented 3, well developed and well nourished, normocephalic and atraumatic, lying in bed and in no acute distress. HEENT--PERRL, EOMI, mucous membranes and oropharynx mildly dry Neck--supple. No JVD. No bruits. Thyroid normal, trachea midline, no adenopathy. Heart--normal S1 and S2. No murmurs, rubs or gallops. Lungs--clear bilaterally, no respiratory distress, no accessory muscle use. Abdomen--Hyperactive bowel sounds, ng tube in situ Extremities--no cyanosis or clubbing. No edema. Dermatologic--normal skin turgor, normal color, no abnormal lymph nodes, no rash. Neurologic--cranial nerves II through XII grossly intact. Rheumatologic--normal range of motion. Psychiatric--normal affect. Results & Data Results & Data Vital Signs (Past 12 Hours) Vital Signs Temp Pulse Pulse Resp BP BP Pulse Ox 06/23/23 06:01 79 185/76 H 06/23/23 04:57 107 H 06/23/23 04:46 102 H 202/78 H 95 06/23/23 03:48 107 H 18 170/77 H 06/23/23 03:35 106 H 18 168/71 H 06/23/23 03:10 125 H 206/80 H 06/23/23 02:48 97 H 18 206/80 H 06/23/23 02:30 101 H 18 215/99 H 96 06/23/23 02:08 98.6 F 102 H 18 205/77 H 96 06/23/23 00:42 102 H 92 06/22/23 23:58 100 H 179/78 H 90 O2 Del Method O2 Flow Rate 06/23/23 06:01 06/23/23 04:57 Nasal Cannula 2 06/23/23 04:46 Nasal Cannula 2 06/23/23 03:48 06/23/23 03:35 06/23/23 03:10 06/23/23 02:48 06/23/23 02:30 Nasal Cannula 1 06/23/23 02:08 Nasal Cannula 1 06/23/23 00:42 Room Air 06/22/23 23:58 Room Air PG Care Time/CCT Total # of Minutes Spent Total Time Spent with Patient: Total time spent is greater than 50% in coordination of care (as documented) at patient's floor/unit and/or counseling patient: Coding Level of Care Code 79362 SUB INP/OBS CARE 2/35MIN Diagnoses Small bowel obstruction K56.609 VALENTIN (obstructive sleep apnea) G47.33 Hypertension I10 Hypothyroidism E03.9 History of mastectomy Z90.10 Time Spent (min) 35
[2023-06-23] MEDS ORDERED: hydrALAZINE HCL 20 MG/ML VIAL IV PRN (12:00)
[2023-06-23] MEDS ORDERED: hydrALAZINE HCL 20 MG/ML VIAL IV ONE (12:02)
[2023-06-23] MEDS: FLUTICASONE PROPIONATE NA SPR 16 GM BTL SCH (20:27)
[2023-06-24] MEDS: hydrALAZINE HCL 20 MG/ML VIAL IV PRN ×3 (00:24→22:12)
[2023-06-24] MEDS ORDERED: LABETALOL HCL IV 5 MG/ML 20ML IV STA (05:49)
[2023-06-24 06:24] LABS: Hemoglobin 14.8 g/dl (12.0-16.0); Mean Corpuscular Hemoglobin 32.4 pg (25.0-34.0); Mean Corpuscular Hgb Conc 34.4 g/dL (32.0-36.0); Mean Corpuscular Volume 94.1 fL (80.0-100.0); Platelet Count 166 K/uL (130-400); RDW Coefficient of Variation 12.5 % (11.5-14.5); RDW Standard Deviation 43.5 fL (36.4-46.3); Red Blood Count 4.57 M/uL (4.20-5.40); White Blood Count 9.92 K/ul (4.8-10.8)
[2023-06-24 06:25] LABS: Basophils # (auto) 0.03 K/uL (0.00-0.20); Basophils % (auto) 0.3 %; Eosinophils # (auto) 0.01 K/uL (0.00-0.50); Eosinophils % (auto) 0.1 %; Immature Granulocytes # (auto) 0.05 K/uL (0.01-0.20); Immature Granulocytes % (auto) 0.5 %; Lymphocytes # (auto) 1.09 K/uL (1.20-3.40); Mean Platelet Volume 10.9 fL (9.4-12.4); Monocytes # (auto) 1.32 K/uL (0.11-0.59); Monocytes % (auto) 13.3 %; Neutrophils # (auto) 7.42 K/uL (1.40-6.50); Neutrophils % (auto) 74.8 %
[2023-06-24 06:44] LABS: BUN Creatinine Ratio 44.2 (10-20); Calcium 9.1 mg/dl (8.6-10.3); Creatinine Clr Calc Pharmacy 82.7 ml/min; Est GFR (African American) 104.6 ml/min; Est GFR (Non-African American) 90.2 ml/min; Potassium 3.8 mmol/L (3.5-5.1)
[2023-06-24] MEDS: HEPARIN SOD 5,000 UNIT/0.5 ML VIAL SQ SCH ×2 (07:57→20:16)
--- NOTE | 2023-06-24 09:04 | Surgery Progress Note ---
Date of Service June 24, 2023 Assessment & Plan (1) SBO (small bowel obstruction): Plan: She has not had any return of bowel function but is slightly improved on abdominal exam today Remains distended, but no peritoneal signs Will continue NPO/NGT at this time I did discuss with her that if she does not improve, exploration may be required Admission and Anticipated Discharge Date Admission Date: June 22, 2023 Subjective Pt seen and examined. No flatus or BM. No N/V. NGT in place. States abdominal pain slightly improved. Review of Systems Constitutional: no fever and no chills Gastrointestinal: + abdominal pain; no nausea and no vomit ing Physical Exam Constitutional: WD/WN, vitals as above Gastrointestinal (Abdomen): Inspection/Auscultation: abdomen normal to inspection and + abdomen distended Percussion/Palpation: + abdomen tender (mild generalized) and abdomen soft; no guarding and abdomen not rigid Results & Data Vital Signs (Past 12 Hours) Vital Signs Temp Pulse Pulse Resp BP BP Pulse Ox 06/24/23 07:59 36.9 C 06/24/23 07:45 93 H 18 200/93 H 92 06/24/23 06:45 77 18 204/73 H 94 06/24/23 06:15 79 18 212/72 H 94 06/24/23 06:14 88 212/72 H 06/24/23 06:00 105 H 14 211/89 H 94 06/24/23 05:59 103 H 198/77 H 06/24/23 05:45 101 H 18 94 06/24/23 05:44 94 H 14 198/77 H 94 06/24/23 05:30 94 H 18 92 06/24/23 05:22 84 18 196/93 H 94 06/24/23 05:01 98 H 21 209/92 H 95 06/24/23 05:00 95 H 22 211/95 H 94 06/24/23 04:00 94 H 15 177/66 H 95 06/24/23 04:00 36.7 C 06/24/23 03:59 98 H 15 187/73 H 95 06/24/23 03:00 104 H 17 204/86 H 93 06/24/23 02:00 100 H 16 174/73 H 94 06/24/23 01:38 98 H 06/24/23 01:01 96 H 15 179/72 H 96 06/24/23 01:00 95 H 17 95 06/24/23 00:23 36.7 C 101 H 18 200/89 H 94 06/24/23 00:20 104 H 20 200/89 H 95 06/24/23 00:00 83 16 94 06/23/23 23:00 102 H 16 93 06/23/23 22:00 100 H 18 95 O2 Del Method O2 Flow Rate 06/24/23 07:59 06/24/23 07:45 Nasal Cannula 2 06/24/23 06:45 Nasal Cannula 2 06/24/23 06:15 06/24/23 06:14 06/24/23 06:00 06/24/23 05:59 06/24/23 05:45 06/24/23 05:44 06/24/23 05:30 06/24/23 05:22 06/24/23 05:01 06/24/23 05:00 06/24/23 04:00 06/24/23 04:00 06/24/23 03:59 06/24/23 03:00 06/24/23 02:00 06/24/23 01:38 06/24/23 01:01 06/24/23 01:00 06/24/23 00:23 Nasal Cannula 2 06/24/23 00:20 06/24/23 00:00 06/23/23 23:00 06/23/23 22:00 PG Care Time/CCT Total # of Minutes Spent Total Time Spent with Patient: Total time spent is greater than 50% in coordination of care (as documented) at patient's floor/unit and/or counseling patient: Coding Level of Care Code 01165 SUB INP/OBS CARE 1/25MIN Diagnoses SBO (small bowel obstruction) K56.609
[2023-06-24] MEDS: LEVOTHYROXINE SODIUM 75 MCG in SYRINGE 0 ML IV SCH (09:18)
--- NOTE | 2023-06-24 11:42 | Hospitalist Progress Note ---
Date of Service June 24, 2023 Assessment & Plan (1) Small bowel obstruction: Plan: Presented to the hospital with Mid abdominal pain, nausea, and vomiting since Wednesday 06/20 Last BM on Thursday 06/21 CT abdomen/pelvis on arrival revealed high-grade SBO General surgery consulted; nonoperative management for now Keep n.p.o.; hold p.o. meds NG tube placed in the ED No bowel movements yet and not passing gas yet, patient ambulating the hallway There may be plans for exp lap if no improvement Appreciate surgery (2) VALENTIN (obstructive sleep apnea): Plan: Patient reports using CPAP at night with a full facemask No other at home oxygen use Continue Flonase prior to CPAP usage (3) Hypertension: Plan: poorly controlled Not on antihypertensives at home PCP recently asked her to use an at-home BP cuff given increased readings in the outpatient setting Hydralazine 5mg IV q6h as needed for SBP >180 (4) Hypothyroidism: Plan: Hold levothyroxine (5) History of mastectomy: Plan: Right-sided mastectomy in 2010 No BP, labs, blood work in right arm Plan Disposition: Admit to [facility] Full code Keep n.p.o. VTE PPx: Heparin 5000u q12h Admission and Anticipated Discharge Date Admission Date: June 22, 2023 Subjective patient seen and examined, ambulating the hallway, but no flatus or BM yet Review of Systems Review of Systems: All systems reviewed are negative, apart from the ones contained in the history. Physical Exam Physical Exam: The patient is awake, alert and oriented 3, well developed and well nourished, normocephalic and atraumatic, lying in bed and in no acute distress. HEENT--PERRL, EOMI, mucous membranes and oropharynx mildly dry Neck--supple. No JVD. No bruits. Thyroid normal, trachea midline, no adenopathy. Heart--normal S1 and S2. No murmurs, rubs or gallops. Lungs--clear bilaterally, no respiratory distress, no accessory muscle use. Abdomen--Hyperactive bowel sounds, ng tube in situ Extremities--no cyanosis or clubbing. No edema. Dermatologic--normal skin turgor, normal color, no abnormal lymph nodes, no rash. Neurologic--cranial nerves II through XII grossly intact. Rheumatologic--normal range of motion. Psychiatric--normal affect. Results & Data Results & Data Vital Signs (Past 12 Hours) Vital Signs Temp Pulse Pulse Resp BP BP Pulse Ox 06/24/23 11:01 89 15 06/24/23 11:00 96 H 18 187/67 H 95 06/24/23 10:30 85 22 146/43 H 06/24/23 09:21 98 H 24 166/71 H 06/24/23 09:00 91 H 17 183/74 H 93 06/24/23 08:00 93 H 19 203/76 H 06/24/23 07:59 98.4 F 06/24/23 07:45 93 H 18 200/93 H 92 06/24/23 06:45 77 18 204/73 H 94 06/24/23 06:15 79 18 212/72 H 94 06/24/23 06:14 88 212/72 H 06/24/23 06:00 105 H 14 211/89 H 94 06/24/23 05:59 103 H 198/77 H 06/24/23 05:45 101 H 18 94 06/24/23 05:44 94 H 14 198/77 H 94 06/24/23 05:30 94 H 18 92 06/24/23 05:22 84 18 196/93 H 94 06/24/23 05:01 98 H 21 209/92 H 95 06/24/23 05:00 95 H 22 211/95 H 94 06/24/23 04:00 94 H 15 177/66 H 95 06/24/23 04:00 98.1 F 06/24/23 03:59 98 H 15 187/73 H 95 06/24/23 03:00 104 H 17 204/86 H 93 06/24/23 02:00 100 H 16 174/73 H 94 06/24/23 01:38 98 H 06/24/23 01:01 96 H 15 179/72 H 96 06/24/23 01:00 95 H 17 95 06/24/23 00:23 98.1 F 101 H 18 200/89 H 94 06/24/23 00:20 104 H 20 200/89 H 95 06/24/23 00:00 83 16 94 O2 Del Method O2 Flow Rate 06/24/23 11:01 06/24/23 11:00 Room Air 06/24/23 10:30 06/24/23 09:21 06/24/23 09:00 Room Air 06/24/23 08:00 06/24/23 07:59 06/24/23 07:45 Nasal Cannula 2 06/24/23 06:45 Nasal Cannula 2 06/24/23 06:15 06/24/23 06:14 06/24/23 06:00 06/24/23 05:59 06/24/23 05:45 06/24/23 05:44 06/24/23 05:30 06/24/23 05:22 06/24/23 05:01 06/24/23 05:00 06/24/23 04:00 06/24/23 04:00 06/24/23 03:59 06/24/23 03:00 06/24/23 02:00 06/24/23 01:38 06/24/23 01:01 06/24/23 01:00 06/24/23 00:23 Nasal Cannula 2 06/24/23 00:20 06/24/23 00:00 PG Care Time/CCT Total # of Minutes Spent Total Time Spent with Patient: Total time spent is greater than 50% in coordination of care (as documented) at patient's floor/unit and/or counseling patient: Coding Level of Care Code 10856 SUB INP/OBS CARE 2/35MIN Diagnoses Small bowel obstruction K56.609 VALENTIN (obstructive sleep apnea) G47.33 Hypertension I10 Hypothyroidism E03.9 History of mastectomy Z90.10 Time Spent (min) 35
[2023-06-24] MEDS: FLUTICASONE PROPIONATE NA SPR 16 GM BTL SCH (20:16)
--- OUTSIDE RECORDS SUMMARY | 2023-06-24 22:38 | External Medical Summary | Summary of Care ---
Author Name Unknown Organization [facility] Address [address] [place] [address] Phone [phone] Care Team Providers Care Armor Officer Name Role Phone Martinez Nogueira MD Primary Care Provide r Encounter Details Date Type Department Care Team Description 04/02/2023 Telephone Pulmonary Medicine, [facility] [address] [place] [id number] Charu Duke CRNP [address] [facility] [place] [address] Allergies Active Allergy Reactions Severity Noted Date Comments Dust Other (Please comment) 01/11/2016 Runny nose Other Allergy (See Comments) Other (Please comment) 01/11/2016 Perfume and smoke - runny nose documented as of this encounter (statuses as of 04/02/2023) Medications Medication Sig Dispensed Refills Start Date End Date Status ASPIRIN 81 MG PO TABS 1 TABLET DAILY 0 Active CO Q 10 30 MG PO CAPS 1 capsule daily 0 Active SELENIUM 200 MCG PO TABS 1 tablet daily 0 Active C-500 500 MG PO CHEW 1 TABLET DAILY 0 Active E-400 400 UNIT PO CAPS 1 capsule daily 0 Active LECITHIN 1200 MG PO CAPS 1 capsule daily 0 Active NASAL SALINE 0.65 % NA SOLNIndications:Helpdesk Specialist von rhinitis,Chronic sinusitis 2 squirts each nostril morning and night and every 2-4 hrs as needed for nasal dryness or congestion 1 0 01/22/2007 Active BETA CAROTENE 10 % BEAD once daily 0 Active VITAMIN D 400 UNIT PO TABS 2 tabs daily 0 Active LEVOTHYROXINE SODIUM 100 MCG OR TABS Take one tablet daily 0 Active FLUTICASONE PROPIONATE 50 MCG/ACT NA SUSPIndications:Helpdesk Specialist von rhinitis 2 squirts each nostril daily in the evening 1 Bottle 5 07/30/2011 Active ZYRTEC 10 MG PO TABSIndications:Helpdesk Specialist von rhinitis one tablet daily 30 Tab 6 11/18/2011 Active Armstrong-3 Fatty Acids (FISH OIL) 1000 MG Capsule Take 1,000 mg by mouth daily. 0 Active Cyanocobalamin (B-12) [address] 1 Tab under the tongue daily. 0 Active Resveratrol 50 MG CAPS Take 2 Caps by mouth daily. 0 Active Red Yeast Rice 600 MG CAPS Take 3 Caps by mouth daily. 0 Active Probiotic Product (PROBIOTIC & ACIDOPHILUS EX ST) Capsule Take 2 Caps by mouth daily. 0 Active Evening [place] Oil 500 MG CAPS Take by mouth. 0 Active documented as of this encounter (statuses as of 04/02/2023) Active Problems Problem Noted Date Personal history of malignant neoplasm o f breast 07/30/2011 Overview: 08/2010 R mastectomy, no chemo NONALLERGIC RHINITIS 12/04/2006 Chronic sinusitis 12/04/2006 ECZEMA 12/04/2006 Deviated nasal septum 12/04/2006 History of tobacco use Obstructive sleep apnea Overview: 01/2016 - BIPAP to improve tolerance 2015 - P90% 2009 titration PSG -- BIPAP 2007 PSG -- RDI 89.9 Care Plus Oxygen Hypothyroidism Dyslipidemia, goal to be determined Toxic diffuse goiter Other osteoporosis without current patho logical fracture Overview: ICD-10 update of inactive term Anxiety state documented as of this encounter (statuses as of 04/02/2023) Social History Tobacco Use Types Packs/Day Years Used Date Smoking Tobacco: Former Cigarettes 0.3 40 Q uit: 06/25/2006 Smokeless Tobacco: Never Comments:no passive smoke ex posures Alcohol Use Standard Drinks/Week Comments Yes 0 (1 standard drink = 0.6 oz pur e alcohol) 3-4 drinks/month Sex Assigned at Date Recorded Not on file Job Start Date Occupation Industry Not on file Not on file Not on file documented as of this encounter Miscellaneous Notes * Telephone Encounter - Shashank Garcia - 04/02/2023 9:12 AM EDT Orders in 04/02 documented in this encounter Plan of Treatment Upcoming Encounters Date Type Specialty Care Team Description 09/16/2023 Office Visit Sleep Disorders Charu Duke CRNP [address] [place] [id number] 03/02/2024 Office Visit Sleep Disorders Charu Duke CRNP [address] [place] [address] Health Maintenance Due Date Last Done Comments Depression Screening, Annual for Pts 12 and Over 1952 DTaP,Tdap,and Td Vaccines (1 - Tdap) 1961 VITAMIN D LEVEL ONCE IN A LIFETIME-USE SMARTSET# 40407 1982 DXA Scan 1992 TSH 10/08/2000 10/09/1999, 09/1998, 05/01/1998 Pneumococcal Vaccine: 65+ Years (1 - PCV) 11/29/2007 Zoster Vaccines (2 of 3) 07/07/2010 05/12/2010 *BISPHONATE OR OTHER ACCEPTABLE MEDICATION NEEDED FOR OSTEOPOROSIS (REFER TO SMARTSET #1146) 08/12/2014 COVID-19 Vaccine (5 - Pfizer series) 03/15/2022 01/18/2022, 06/29/2021, 10/11/2020, Additional history exists Influenza Vaccine (FLU shot) (#1) 2023 05/29/2022, 06/04/2021, 05/25/2020, Additional history exists GARDASIL-HPV IMMUNIZATION SERIES Aged Out No longer eligible based on patient's age to complete this topic Hepatitis B Aged Out No longer eligi ble based on patient's age to complete this topic MENINGOCOCCAL (MENACTRA/MENVEO) Aged Out No longer eligible based on patient's age to complete this topic documented as of this encounter Medical Devices Implanted Type Area Vehicle Body Builder Device Identifier Shelf Expiration Date Model / Serial / Lot [id number] Implanted:Qty: 1 on 09/08/2018 by Carlos Campos MD at OR [facility] Right: Eye 03/10/2021 [id number] / [id number] / Iol Implanted:Qty: 1 on 09/15/2018 by Carlos Campos MD at OR [facility] Left: Eye 03/10/2021 [id number] / [id number] / documented as of this encounter Care Teams Armor Officer Relationship Specialty Start Date End Date Martinez Nogueira MD [address], [place] [address] PCP - General 08/13/1998 documented as of this encounter
[2023-06-24] MEDS ORDERED: LABETALOL HCL IV 5 MG/ML 20ML IV PRN (22:45)
[2023-06-25 05:04] LABS: Basophils # (auto) 0.02 K/uL (0.00-0.20); Basophils % (auto) 0.2 %; Eosinophils # (auto) 0.01 K/uL (0.00-0.50); Eosinophils % (auto) 0.1 %; Hematocrit (blood only) 41.9 % (37.0-47.0); Immature Granulocytes # (auto) 0.02 K/uL (0.01-0.20); Immature Granulocytes % (auto) 0.2 %; Lymphocytes # (auto) 1.03 K/uL (1.20-3.40); Lymphocytes % (auto) 11.4 %; Mean Corpuscular Hemoglobin 31.9 pg (25.0-34.0); Mean Corpuscular Hgb Conc 33.4 g/dL (32.0-36.0); Mean Corpuscular Volume 95.4 fL (80.0-100.0); Mean Platelet Volume 10.8 fL (9.4-12.4); Monocytes # (auto) 1.27 K/uL (0.11-0.59); Monocytes % (auto) 14.1 %; Neutrophils # (auto) 6.68 K/uL (1.40-6.50); Platelet Count 169 K/uL (130-400); RDW Coefficient of Variation 12.8 % (11.5-14.5); RDW Standard Deviation 45.7 fL (36.4-46.3); Red Blood Count 4.39 M/uL (4.20-5.40); White Blood Count 9.03 K/ul (4.8-10.8)
[2023-06-25 05:22] LABS: BUN Creatinine Ratio 57.1 (10-20); Calcium 9.3 mg/dl (8.6-10.3); Creatinine Clr Calc Pharmacy 68.3 ml/min; Est GFR (African American) 98.2 ml/min; Est GFR (Non-African American) 84.7 ml/min; Potassium 3.2 mmol/L (3.5-5.1)
[2023-06-25] MEDS: POTASSIUM CHLORIDE / WTR 10 MEQ/100 ML PLCT IV SCH ×3 (08:29→12:06)
[2023-06-25] MEDS: HEPARIN SOD 5,000 UNIT/0.5 ML VIAL SQ SCH ×2 (08:29→21:07)
--- NOTE | 2023-06-25 11:08 | Hospitalist Progress Note ---
Date of Service June 25, 2023 Assessment & Plan (1) Small bowel obstruction: Plan: Presented to the hospital with Mid abdominal pain, nausea, and vomiting since 06/20 Last BM on Thursday 06/21 CT abdomen/pelvis on arrival revealed high-grade SBO General surgery consulted; nonoperative management for now Keep n.p.o.; hold p.o. meds NG tube placed in the ED Patient now passing gas, but no BM yet Will repeat KUB Appreciate surgery (2) VALENTIN (obstructive sleep apnea): Plan: Patient reports using CPAP at night with a full facemask No other at home oxygen use Continue Flonase prior to CPAP usage (3) Hypertension: Plan: Now under better control Not on antihypertensives at home Hydralazine 5mg IV q6h as needed for SBP >180 will d/c home on anti htn med (4) Hypothyroidism: Plan: IV Levothyroxine 50microgram Q72 Hr (5) History of mastectomy: Plan: Right-sided mastectomy in 2010 No BP, labs, blood work in right arm Plan Disposition: Admit to [facility] Full code Keep n.p.o. VTE PPx: Heparin 5000u q12h Admission and Anticipated Discharge Date Admission Date: June 22, 2023 Subjective patient seen and examined, ambulating the hallway, now passing flatus, but no BM yet Review of Systems Review of Systems: All systems reviewed are negative, apart from the ones contained in the history. Physical Exam Physical Exam: The patient is awake, alert and oriented 3, well developed and well nourished, normocephalic and atraumatic, lying in bed and in no acute distress. HEENT--PERRL, EOMI, mucous membranes and oropharynx mildly dry Neck--supple. No JVD. No bruits. Thyroid normal, trachea midline, no adenopathy. Heart--normal S1 and S2. No murmurs, rubs or gallops. Lungs--clear bilaterally, no respiratory distress, no accessory muscle use. Abdomen--Hyperactive bowel sounds, ng tube in situ Extremities--no cyanosis or clubbing. No edema. Dermatologic--normal skin turgor, normal color, no abnormal lymph nodes, no rash. Neurologic--cranial nerves II through XII grossly intact. Rheumatologic--normal range of motion. Psychiatric--normal affect. Results & Data Results & Data Vital Signs (Past 12 Hours) Vital Signs Temp Pulse Pulse Resp BP Pulse Ox O2 Del Method 06/25/23 08:58 148/65 H 06/25/23 07:36 98.2 F 98 H 16 191/70 H 91 Room Air 06/25/23 03:09 98.2 F 100 H 14 171/75 H 95 Room Air 06/25/23 02:10 70 06/25/23 02:00 150/70 H PG Care Time/CCT Total # of Minutes Spent Total Time Spent with Patient: Total time spent is greater than 50% in coordination of care (as documented) at patient's floor/unit and/or counseling patient: Coding Level of Care Code 23139 SUB INP/OBS CARE 2/35MIN Diagnoses Small bowel obstruction K56.609 VALENTIN (obstructive sleep apnea) G47.33 Hypertension I10 Hypothyroidism E03.9 History of mastectomy Z90.10 Time Spent (min) 35
--- NOTE | 2023-06-25 11:34 | Surgery Progress Note ---
Date of Service June 25, 2023 Assessment & Plan (1) SBO (small bowel obstruction): Plan: She is passing a little bit of flatus Will proceed with SBFT today Will follow up the results and further treatment plan Admission and Anticipated Discharge Date Admission Date: June 22, 2023 Subjective Pt seen and examined. Abdominal pain improved. Passed 3 small amounts of flatus. Afebrile. Review of Systems Constitutional: no fever and no chills Physical Exam Constitutional: WD/WN, vitals as above Gastrointestinal (Abdomen): Inspection/Auscultation: abdomen normal to inspection; abdomen not distended Percussion/Palpation: abdomen soft; abdomen nontender and no guarding Results & Data Vital Signs (Past 12 Hours) Vital Signs Temp Pulse Pulse Resp BP Pulse Ox O2 Del Method 06/25/23 08:58 148/65 H 06/25/23 07:36 36.8 C 98 H 16 191/70 H 91 Room Air 06/25/23 03:09 36.8 C 100 H 14 171/75 H 95 Room Air 06/25/23 02:10 70 06/25/23 02:00 150/70 H PG Care Time/CCT Total # of Minutes Spent Total Time Spent with Patient: Total time spent is greater than 50% in coordination of care (as documented) at patient's floor/unit and/or counseling patient: Coding Level of Care Code 10664 SUB INP/OBS CARE 1/25MIN Diagnoses SBO (small bowel obstruction) K56.609
[2023-06-25] MEDS ORDERED: hydrALAZINE HCL 20 MG/ML VIAL IV STA (12:16)
--- NOTE | 2023-06-25 14:24 | XRay Report ---
XR KUB/Abdomen 1 view CLINICAL HISTORY: follow up TECHNIQUE: 1 view of the abdomen was obtained. Comparison: Comparison is made to abdomen radiograph 06/22/2023 FINDINGS: Stable appearance of the enteric tube. The osseous structures are grossly unremarkable. Numerous gas distended loops of small bowel measure up to 47 mm in diameter. Small stool burden is seen. IMPRESSION: Numerous gas-distended loops of small bowel are seen compatible with continued small bowel obstructio n. Enteric tube is in satisfactory position. ACT 112: Negative or not required by law. Electronically signed by: Manny Donis M.D. 06/25/2023 2:23 PM
[2023-06-25] MEDS: ONDANSETRON INJ 2 MG/ML 2 ML VIAL IV PRN (15:03)
[2023-06-25] MEDS: CHECK CLONIDINE PATCH PLACEMENT SCH (16:20)
--- NOTE | 2023-06-25 19:35 | Fluoroscopy Report ---
FL small bowel follow through CLINICAL HISTORY: SBO TECHNIQUE: Hollock Maker images were obtained. The patient drank barium followed by serial abdominal xray im ages. Comparison: Comparison is made to abdomen radiograph 06/25/2023 FINDINGS: Enteric tube is seen with the tip and side-port below the diaphragm. Redemonstration of numerous dila angela loops of small bowel. An enteric tube is unchanged in position. Transit of contrast to the small bowel is seen at 6 hours. IMPRESSION: Findings compatible with partial small bowel obstruction with transit of contrast to the colon in 6 h ours. ACT 112: Negative or not required by law. Electronically signed by: Manny Donis M.D. 06/25/2023 7:33 PM
[2023-06-25] MEDS: FLUTICASONE PROPIONATE NA SPR 16 GM BTL SCH (21:08)
[2023-06-26] MEDS: CHECK CLONIDINE PATCH PLACEMENT SCH ×3 (00:42→16:14)
[2023-06-26 04:20] LABS: Hemoglobin 13.7 g/dl (12.0-16.0); Mean Corpuscular Hemoglobin 31.6 pg (25.0-34.0); Mean Corpuscular Hgb Conc 32.6 g/dL (32.0-36.0); Mean Platelet Volume 11.1 fL (9.4-12.4); Platelet Count 168 K/uL (130-400); RDW Coefficient of Variation 13.2 % (11.5-14.5); RDW Standard Deviation 47.7 fL (36.4-46.3); Red Blood Count 4.33 M/uL (4.20-5.40); White Blood Count 8.74 K/ul (4.8-10.8)
[2023-06-26 04:35] LABS: BUN Creatinine Ratio 60.2 (10-20); Calcium 9.4 mg/dl (8.6-10.3); Creatinine Clr Calc Pharmacy 48.2 ml/min; Est GFR (African American) 71.9 ml/min; Est GFR (Non-African American) 62.1 ml/min; Potassium 3.2 mmol/L (3.5-5.1)
--- NOTE | 2023-06-26 07:10 | XRay Report ---
KUB CLINICAL HISTORY: Small bowel obstruction. COMPARISON STUDY: KUB June 25, 2023. Small bowel follow-through June 25, 2023. CT of the abd omen and pelvis June 22, 2023. FINDINGS: Tip of nasogastric tube is within the gastric fundus. Multiple loops of moderately dilated small bowel are similar to prior KUB of June 25, 2023. Contrast from the small bowel follow-throu gh is now predominantly within the colon. Small amount residual small bowel contrast is noted. IMPRESSION: Findings consistent with a persistent partial small bowel obstruction. However, contrast from small bowel follow-through is now predominantly within the colon. Therefore, no complete bowel o bstruction. ACT 112: Negative or not required by law. Electronically signed by: Merlni Gagnon M.D. 06/26/2023 7:08 AM
[2023-06-26] MEDS ORDERED: DEXTROSE 5% 1,000 ML IV SCH (07:45)
[2023-06-26] MEDS: HEPARIN SOD 5,000 UNIT/0.5 ML VIAL SQ SCH ×2 (09:02→20:25)
--- NOTE | 2023-06-26 09:18 | Surgery Progress Note ---
Date of Service June 26, 2023 Assessment & Plan (1) SBO (small bowel obstruction): Plan: Her small bowel follow-through and KUB images from yesterday and today were personally reviewed and interpreted by myself She has persistent dilation of her small bowel, however contrast has made it completely through and is now in the colon on the small bowel follow-through and KUB She remains stable hemodynamically and without leukocytosis or fever Continue n.p.o. and NG tube for now as she is slowly improving We will start PPN at this point as she has had decreased p.o. intake for about a week now I discussed with her daughters and the patient at bedside about our current management plan and they collectively requested a second surgical opinion I did discuss with him that as long as she is slowly making progress towards resolving her obstruction, there is no immediate need for exploration We will continue to follow along closely I was at bedside discussing all of the above with the patient and her daughter's for approximately 35 minutes Admission and Anticipated Discharge Date Admission Date: June 22, 2023 Subjective Patient seen and examined. She still passing some flatus. Afebrile. States she feels a little less distended. Review of Systems Constitutional: no fever and no chills Physical Exam Constitutional: WD/WN, vitals as above Gastrointestinal (Abdomen): Inspection/Auscultation: abdomen normal to inspection and + abdomen distended Percussion/Palpation: abdomen soft; abdomen nontender, no guarding and abdomen not rigid Results & Data Vital Signs (Past 12 Hours) Vital Signs Temp Pulse Pulse Resp BP Pulse Ox O2 Del Method 06/26/23 04:24 140/61 06/26/23 04:02 36.6 C 100 H 18 161/61 H 96 Nasal Cannula 06/26/23 00:28 97 H 06/25/23 23:18 36.6 C 97 H 18 125/59 L 96 Nasal Cannula 06/25/23 21:46 36.8 C O2 Flow Rate 06/26/23 04:24 06/26/23 04:02 2 06/26/23 00:28 06/25/23 23:18 2 06/25/23 21:46 Diagnostic Findings KUB CLINICAL HISTORY: Small bowel obstruction. COMPARISON STUDY: KUB June 25, 2023. Small bowel follow-through June 25, 2023. CT of the abdomen and pelvis June 22, 2023. FINDINGS: Tip of nasogastric tube is within the gastric fundus. Multiple loops of moderately dilated small bowel are similar to prior KUB of June 25, 2023. Contrast from the small bowel follow-through is now predominantly within the colon. Small amount residual small bowel contrast is noted. IMPRESSION: Findings consistent with a persistent partial small bowel obstruction. However, contrast from small bowel follow-through is now predominantly within the colon. Therefore, no complete bowel obstruction. PG Care Time/CCT Total # of Minutes Spent Total Time Spent with Patient: Total time spent is greater than 50% in coordination of care (as documented) at patient's floor/unit and/or counseling patient: Coding Level of Care Code 56794 SUB INP/OBS CARE 235MIN Diagnoses SBO (small bowel obstruction) K56.609
[2023-06-26] MEDS ORDERED: TPN/PPN CONSULT PHARMACY STA (11:28)
--- NOTE | 2023-06-26 11:46 | Gastrointestinal Consultation ---
Date of Consultation June 26, 2023 Assessment & Plan (1) SBO (small bowel obstruction): Plan Today I had a long discussion with both daughters and the patient about small bowel obstruction. They had several questions which were answered. Suspect at this time that this is related to adhesions from prior surgeries. no role for any endoscopic procedures at this time. continue with supportive care, NPO, and NG tube. There was some mild esophagitis seen on her initial CT. will add protonix 40mg IV bid. Case was reviewed with Dr. Mcelroy who advised on plan. Supervising Physician Co-Signing Physician Notes I saw the patient and agree with the findings as documented by NEETA Villafuerte History of Present Illness Reason for Consultation: Family request / SBO Requesting Physician: Darrin Guerrero DO Attending Physician: Ileana Abel MD History of Present Illness Patient is an 82 year old female with past medical history of hypertensions, breast cancer, hypothyroidism, hyperlipidemia, osteopenia, VALENTIN, right-sided ovarian torsion, history of cholecystectomy, and COPD with emphysema. She presented to the ED for complaints of abdominal pain and multiple episodes of vomiting. Upon work up she was found to have a SBO and had been made NPO and had an NG tube placed. Since she had been admitted she has seen improvement in her symptoms and currently denies any further abdominal pain or vomiting. She is passing gas but has not had a bowel movement as of yet. The patient herself tells me she has seen improvement in her symptoms. rest of GI ros unremarkable. Patient had her daughter at bedside and another daughter who participated in the encounter over the phone. Both daughters helped provide history and had questions. colonoscopy 2019 hyperplastic colon polyp, diverticulosis, and internal hemorrhoids. Allergies Allergy/AdvReac Type Severity Reaction Status Date / Time chocolate flavor AdvReac Mild HEADACHE/DI Verified 06/04/23 14:01 ARRHEA cat dander AdvReac Verified 06/04/23 14:01 dog dander AdvReac Verified 06/04/23 14:01 grass pollen AdvReac Verified 06/04/23 14:01 mold AdvReac Verified 06/04/23 14:01 tree and shrub pollen AdvReac Verified 06/04/23 14:01 Home Medications Medication Instructions Recorded Confirmed Type Lactobacillus acidophilus 10 1 cap PO DAILY 08/07/18 06/22/23 History billion cell capsule (Probiotic) cetirizine 10 mg tablet (Zyrtec) 10 mg PO DAILY PRN NEEDED 08/07/18 06/22/23 History coQ10 (ubiquinol) 100 mg capsule 100 mg PO DAILY 08/07/18 06/22/23 History evening primrose oil 500 mg capsule 500 mg PO DAILY 08/07/18 06/22/23 History lecithin 1,200 mg capsule 1,200 mg PO DAILY 08/07/18 06/22/23 History omega 4-dhf-axr-fish oil 1,000 mg 1 cap PO DAILY 08/07/18 06/22/23 History (120 mg-180 mg) capsule (Fish Oil) resveratrol 50 mg capsule 1 cap PO DAILY 08/07/18 06/22/23 History selenium 200 mcg capsule 200 mcg PO DAILY 08/07/18 06/22/23 History ascorbic acid (vitamin C) 500 mg 500 mg PO DAILY 05/06/22 06/22/23 History tablet (Vitamin C) cholecalciferol (vitamin D3) 50 50 mcg PO DAILY 05/06/22 06/22/23 History mcg (2,000 unit) capsule cyanocobalamin (vitamin B-12) 2,500 mcg sublingual WK 05/06/22 06/22/23 History 2,500 mcg sublingual tablet levothyroxine 100 mcg tablet 100 mcg PO DAILY #90 tabs 12/16/22 06/22/23 Rx aspirin 81 mg tablet,delayed 81 mg PO HS 04/15/23 06/22/23 History release (Aspir-Low) red yeast rice 600 mg capsule 600 mg PO 4XD 04/15/23 06/22/23 History blood pressure monitor (Blood #1 ea 06/09/23 06/22/23 Rx Pressure Kit) fluticasone propionate 50 2 spray intranasal HS 06/22/23 06/22/23 History mcg/actuation nasal spray,suspension (Flonase Allergy Relief) Patient History Medical History Contact dermatitis History of tobacco abuse Abnormal finding on lung imaging Thickened endometrium Postmenopausal bleeding Abnormal mammogram Uterine leiomyoma Positive colorectal cancer screening using Cologuard test Ovarian cyst HX OF Hypothyroidism Cancer RT BREAST CANCER Anxiety Sleep apnea BIPAP Surgical History Hx of cataract surgery History of endoscopic sinus surgery History of bilateral tubal ligation History of mastectomy RT History of open reduction and internal fixation (ORIF) procedure RT H/O oophorectomy RT History of colonoscopy History of cholecystectomy History of thyroidectomy, total History of tooth extraction Family History Grandfather (Paternal) Diabetes Aunt Breast cancer paternal Mother Cerebral artery occlusion Heart disease Father Alcohol abuse Brother Diabetes Myocardial infarction, Onset Age: 47 Denies family history of Ovarian cancer Prostate cancer Lung cancer Colorectal cancer Lung disease Stroke Social History Smoking Status: Former smoker Tobacco Type: Cigarettes Age Started Using Tobacco: 21; Age Quit Using Tobacco: 65; Second Hand Exposure: No; Do You Dip or Chew Tobacco: No; Hx Alcohol Use: Yes Alcohol type: wine Alcohol Intake Frequency: 4 or More x per/Week Hx Substance Use: No Preferred Language: Albanian Communication Ability: Effective Visual Impairment: Limited Hearing Ability: Normal [employer] Required: No Beliefs That Will Affect Care: None marital status: Current Living Situation: Alone current occupational status: retired How many Children do You have: 3 Feels Safe at Home: Yes Childhood Exposure to Second-Hand Smoke: Yes Diet: regular caffeine: Yes (2 cups of coffee daily ) Dental Care, Regularly: No Physical Activity Frequency: Daily Seatbelt Use: always Sunscreen Use: No Assistive Devices: CPAP Review of Systems Review of Systems: All systems reviewed & are unremarkable except as noted in HPI & below Physical Exam Respiratory: normal respiratory effort, lungs clear to auscultation Cardiovascular: RRR, no murmur, no edema Gastrointestinal (Abdomen): hypoactive, limited bowel sounds noted. abdomen is nontender, soft. Psychiatric: A+Ox3, euthymic affect Results & Data Vital Signs (Past 12 Hours) Vital Signs Temp Pulse Pulse Resp BP Pulse Ox O2 Del Method 06/26/23 04:24 140/61 06/26/23 04:02 97.9 F 100 H 18 161/61 H 96 Nasal Cannula 06/26/23 00:28 97 H O2 Flow Rate 06/26/23 04:24 06/26/23 04:02 2 06/26/23 00:28 PG Care Time/CCT Total # of Minutes Spent Total Time Spent with Patient: Total time spent is greater than 50% in coordination of care (as documented) at patient's floor/unit and/or counseling patient: Coding Level of Care Code 61217 INT INP/OBS CARE 2/55MIN Diagnoses SBO (small bowel obstruction) K56.609 Time Spent (min) 57
--- NOTE | 2023-06-26 12:07 | Hospitalist Progress Note ---
Date of Service June 26, 2023 Assessment & Plan (1) Small bowel obstruction: Plan: Presented to the hospital with Mid abdominal pain, nausea, and vomiting since 06/20 Last BM on Thursday 06/21 CT abdomen/pelvis on arrival revealed high-grade SBO General surgery consulted; nonoperative management for now Keep n.p.o.; hold p.o. meds NG tube placed in the ED Patient now passing gas, but no BM yet Bowel follow through showed some contrast in the colon, which suggest obstruction is not complete Consulted pharmacy for Parenteral nutrition Appreciate surgery (2) VALENTIN (obstructive sleep apnea): Plan: Patient reports using CPAP at night with a full facemask No other at home oxygen use Continue Flonase prior to CPAP usage (3) Hypertension: Plan: Now under better control Not on antihypertensives at home Hydralazine 5mg IV q6h as needed for SBP >180 will d/c home on anti htn med (4) Hypothyroidism: Plan: IV Levothyroxine 50microgram Q72 Hr (5) History of mastectomy: Plan: Right-sided mastectomy in 2010 No BP, labs, blood work in right arm Plan [facility]position: [facility] Full code Keep n.p.o. VTE PPx: Heparin 5000u q12h Admission and Anticipated Discharge Date Admission Date: June 22, 2023 Subjective patient seen and examined, still passing some flatus, but no BM Review of Systems Review of Systems: All systems reviewed are negative, apart from the ones contained in the history. Physical Exam Physical Exam: The patient is awake, alert and oriented 3, well developed and well nourished, normocephalic and atraumatic, lying in bed and in no acute distress. HEENT--PERRL, EOMI, mucous membranes and oropharynx mildly dry Neck--supple. No JVD. No bruits. Thyroid normal, trachea midline, no adenopathy. Heart--normal S1 and S2. No murmurs, rubs or gallops. Lungs--clear bilaterally, no respiratory distress, no accessory muscle use. Abdomen--Hyperactive bowel sounds, ng tube in situ Extremities--no cyanosis or clubbing. No edema. Dermatologic--normal skin turgor, normal color, no abnormal lymph nodes, no rash. Neurologic--cranial nerves II through XII grossly intact. Rheumatologic--normal range of motion. Psychiatric--normal affect. Results & Data Results & Data Vital Signs (Past 12 Hours) Vital Signs Temp Pulse Pulse Resp BP Pulse Ox O2 Del Method 06/26/23 11:55 98.4 F 86 19 151/61 H 90 Room Air 06/26/23 04:24 140/61 06/26/23 04:02 97.9 F 100 H 18 161/61 H 96 Nasal Cannula 06/26/23 00:28 97 H O2 Flow Rate 06/26/23 11:55 06/26/23 04:24 06/26/23 04:02 2 06/26/23 00:28 PG Care Time/CCT Total # of Minutes Spent Total Time Spent with Patient: Total time spent is greater than 50% in coordination of care (as documented) at patient's floor/unit and/or counseling patient: Coding Level of Care Code 25745 SUB INP/OBS CARE 2/35MIN Diagnoses Small bowel obstruction K56.609 VALENTIN (obstructive sleep apnea) G47.33 Hypertension I10 Hypothyroidism E03.9 History of mastectomy Z90.10 Time Spent (min) 35
[2023-06-26] MEDS ORDERED: TPN/PPN CONSULT PHARMACY PRN (12:11)
[2023-06-26] MEDS: POTASSIUM CHLORIDE / WTR 10 MEQ/100 ML PLCT IV SCH ×3 (13:19→16:13)
[2023-06-26 13:27] LABS: Bilirubin,Total 0.5 mg/dl (0.2-1.0); Magnesium 2.9 mg/dl (1.7-2.4); Potassium 3.2 mmol/L (3.5-5.1)
[2023-06-26] MEDS ORDERED: CHLORASEPTIC 1.4% SOLN 180 ML BTL MT PRN (13:27)
[2023-06-26 13:33] LABS: BUN Creatinine Ratio 68.1 (10-20); Est GFR (African American) 91.7 ml/min; Est GFR (Non-African American) 79.1 ml/min; Phosphorus 3.6 mg/dl (2.5-4.9)
--- NOTE | 2023-06-26 13:59 | Surgery Progress Note ---
Date of Service June 26, 2023 Assessment & Plan (1) SBO (small bowel obstruction): Plan: Chart as well as imaging reviewed. Recent small bowel follow-through shows contrast to the colon. She does continue to have some dilated small bowel and no bowel function yet. We discussed all of this. My opinion there is a 50-50 chance she will get through this without surgical intervention. I do not believe there is any urgent indication to proceed to the operating room. If she worsens or does not improve certainly surgical exploration is still on the table. We discussed the risks of surgery versus the risks of some continued conservative management to see how she does. I would recommend keeping NG tube until she has better bowel function. Vitals are stable she is not in any pain. My advice would be to continue to monitor over the next 24 to 48 hours for improved bowel function. If she fails conservative management after that our hand will probably be forced to surgical exploration. Her 1 daughter is requesting gastroenterology consultation specifically an MD not a DO. She gave the name of Dr. Antoine we will consult him at her wishes. I discussed my converstation /opinion with Dr. Monsivais who will continue to manage her surgical care. Admission and Anticipated Discharge Date Admission Date: June 22, 2023 Subjective Patient here for a partial small bowel obstruction. Family patient requested a second surgical opinion and I was asked to provide this. Mae herself is feeling okay. She has no abdominal pain and no nausea. Her primary complaint is pain in her throat from her NG tube. Physical Exam Constitutional: WD/WN, vitals as above no acute distress and not ill appearing Eyes: PERRL, conjunctivae normal, anicteric sclerae EOM intact bilaterally ENMT: external ear and nose normal, oropharynx normal Ears: no hearing impairment Neck: trachea midline, no thyromegaly Respiratory: normal respiratory effort; no respiratory distress and does not use accessory muscles Cardiovascular: Rate/Rhythm: regular rate and regular rhythm Gastrointestinal (Abdomen): Soft. Nontender. Minimal distention. Positive bowel sounds Skin: no rashes, warm and dry Psychiatric: Orientation: alert, oriented x 3 and cooperative Results & Data Vital Signs (Past 12 Hours) Vital Signs Temp Pulse Resp BP Pulse Ox O2 Del Method O2 Flow Rate 06/26/23 11:55 36.9 C 86 19 151/61 H 90 Room Air 06/26/23 04:24 140/61 06/26/23 04:02 36.6 C 100 H 18 161/61 H 96 Nasal Cannula 2 PG Care Time/CCT Total # of Minutes Spent Total Time Spent with Patient: Total time spent is greater than 50% in coordination of care (as documented) at patient's floor/unit and/or counseling patient: Coding Level of Care Code 91084 SUB INP/OBS CARE 3/50MIN Diagnoses SBO (small bowel obstruction) K56.609
[2023-06-26] MEDS ORDERED: DEXTROSE 10% 1,000 ML IV PRN (14:29)
[2023-06-26] MEDS ORDERED: CLINOLIPID 20% IV FAT EMULSION 250 ML IV SCH (16:00)
[2023-06-26] MEDS: PERIPHERAL TPN IV SCH (16:29)
[2023-06-26] MEDS: [UNRECOGNIZED DRUG - OTHER] IV SCH (16:29)
[2023-06-26] MEDS: PANTOprazole 40 MG in SYRINGE 0 ML IV SCH (20:25)
[2023-06-26] MEDS: FLUTICASONE PROPIONATE NA SPR 16 GM BTL SCH (20:25)
[2023-06-26] MEDS ORDERED: STOP CLINOLIPID SCH (22:00)
[2023-06-27] MEDS: CHECK CLONIDINE PATCH PLACEMENT SCH ×4 (00:06→23:56)
[2023-06-27 07:33] LABS: BUN Creatinine Ratio 61.1 (10-20); Calcium 8.8 mg/dl (8.6-10.3); Est GFR (African American) 91.7 ml/min; Est GFR (Non-African American) 79.1 ml/min; Magnesium 2.6 mg/dl (1.7-2.4)
[2023-06-27] MEDS: PANTOprazole 40 MG in SYRINGE 0 ML IV SCH ×2 (07:43→20:57)
[2023-06-27] MEDS: HEPARIN SOD 5,000 UNIT/0.5 ML VIAL SQ SCH ×2 (07:43→20:57)
[2023-06-27 08:00] LABS: Basophils # (auto) 0.05 K/uL (0.00-0.20); Basophils % (auto) 0.5 %; Eosinophils # (auto) 0.09 K/uL (0.00-0.50); Eosinophils % (auto) 0.8 %; Hematocrit (blood only) 43.8 % (37.0-47.0); Hemoglobin 14.1 g/dl (12.0-16.0); Immature Granulocytes # (auto) 0.06 K/uL (0.01-0.20); Immature Granulocytes % (auto) 0.6 %; Lymphocytes # (auto) 2.05 K/uL (1.20-3.40); Lymphocytes % (auto) 19.3 %; Mean Corpuscular Hemoglobin 32.1 pg (25.0-34.0); Mean Corpuscular Hgb Conc 32.2 g/dL (32.0-36.0); Mean Corpuscular Volume 99.8 fL (80.0-100.0); Mean Platelet Volume 11.9 fL (9.4-12.4); Monocytes # (auto) 0.98 K/uL (0.11-0.59); Monocytes % (auto) 9.2 %; Neutrophils # (auto) 7.37 K/uL (1.40-6.50); Neutrophils % (auto) 69.6 %; Platelet Count 183 K/uL (130-400); RDW Standard Deviation 48.1 fL (36.4-46.3); Red Blood Count 4.39 M/uL (4.20-5.40)
[2023-06-27] MEDS ORDERED: POTASSIUM PHOSPHATE 15 MMOL in SODIUM CHLORIDE 0.9% 250 ML IV ONE (08:15)
--- NOTE | 2023-06-27 08:50 | Surgery Progress Note ---
Date of Service June 27, 2023 Assessment & Plan (1) SBO (small bowel obstruction): Plan: Pt in bed resting reports was up in the chair today. Denies abdominal pain, bloating, feels pressure with palpation Reports a liquid BM this AM Ambulating with daughter in the halls , encouraged this KUB from yesterday 06/26/23 showing : IMPRESSION: Findings consistent with a persistent partial small bowel obstruction. However, contrast from small bowel follow-through is now predominantly within the colon. Therefore, no complete bowel obstruction. NG tube 200cc /24 hr WBC WNL VSS Admission and Anticipated Discharge Date Admission Date: June 22, 2023 Supervising Physician Co-Signing Physician Notes I personally saw and evaluated the patient with Domonique BYERS and agree with the assessment and plan 82-year-old female with a small bowel obstruction, slowly resolving She has had some return of bowel function and decreased NGT output that is now non-bilious Will d/c NGT and keep on sips/chips Continue non-operative management of her SBO Subjective Pt in bed resting reports was up in the chair today. Denies abdominal pain, bloating Reports a liquid BM this AM Ambulating with daughter Review of Systems Constitutional: no fever and no chills Cardiovascular: no chest pain Gastrointestinal: no abdominal pain (pressure TTP), no nausea and no vomiting Genitourinary: no problem reported Musculoskeletal: + muscle weakness Psychiatric: no problem reported Physical Exam Physical Exam: awake alert oriented, pleasant Constitutional: cooperative and comfortable; no acute distress Respiratory: normal respiratory effort and able to speak in complete sentences; no respiratory distress Cardiovascular: Rate/Rhythm: regular rate Gastrointestinal (Abdomen): Inspection/Auscultation: abdomen normal to inspection; abdomen not distended Percussion/Palpation: abdomen soft; no guarding and abdomen not rigid Results & Data Vital Signs (Past 12 Hours) Vital Signs Temp Pulse Pulse Pulse Resp BP Pulse Ox 06/27/23 07:55 06/27/23 07:32 97.5 F L 84 13 127/82 95 06/27/23 07:26 101 H 06/27/23 00:07 98.2 F 71 16 130/76 97 06/27/23 00:05 06/26/23 23:54 77 06/26/23 21:00 84 20 O2 Del Method O2 Flow Rate 06/27/23 07:55 Room Air 06/27/23 07:32 Room Air 06/27/23 07:26 06/27/23 00:07 Nasal Cannula 2 06/27/23 00:05 Nasal Cannula 2 06/26/23 23:54 06/26/23 21:00 [phone] [facility] Report Patient: DEMARCO ABAD Admit Date: 06/22/23 MR#: [id number] Address1: [address]aim[address] MONTERO Acct ID:[id number] Address2: Date: 1940 [address] Zip: [place] [address] Age: 82 Location: 1E Sex: F Room/Bed: [facility] Att Phy: Ileana Abel MD Diagnosis: VOMITING, SBO Theresa Phy: Martinez Nogueira MD Service Date: 06/26/23 Fam Phy: Interpreting Phy: [facility]: Yao Chu MD Ordering Phy: Steven Wilson PA-C cc: ~ KUB CLINICAL HISTORY: Small bowel obstruction. COMPARISON STUDY: KUB June 25, 2023. Small bowel follow-through June. CT of the abdomen and pelvis June 22, 2023. FINDINGS: Tip of nasogastric tube is within the gastric fundus. Multiple loops of moderately dilated small bowel are similar to prior KUB of June 25, 2023. Contrast from the small bowel follow-through is now predominantly within the colon. Small amount residual small bowel contrast is noted. IMPRESSION: Findings consistent with a persistent partial small bowel obstruction. However, contrast from small bowel follow-through is now predominantly within the colon. Therefore, no complete bowel obstruction. ACT 112: Negative or not required by law. Electronically signed by: Merlin Gagnon M.D. 06/26/2023 7:08 AM Dictated: 06/26/23701 Transcribed: 06/26/23702 PG Care Time/CCT Total # of Minutes Spent Total Time Spent with Patient: Total time spent is greater than 50% in coordination of care (as documented) at patient's floor/unit and/or counseling patient: Coding Level of Care Code 92443 SUB INP/OBS CARE 2/35MIN Diagnoses SBO (small bowel obstruction) K56.028
[2023-06-27] MEDS: LEVOTHYROXINE SODIUM 75 MCG in SYRINGE 0 ML IV SCH (10:00)
--- NOTE | 2023-06-27 10:54 | Pharmacy Report ---
Pharmacy PN Initial Consult - Date of Service June 27, 2023 - Scope Pharmacy has been consulted to manage parenteral nutrition orders and order appropriate labs. As part of the Nutrition Support Team guidelines, pharmacy will work in conjunction with dietary when determining the patients caloric needs. - Subjective The patient is a 82 year old F admitted on 06/22/23 15:10 for VOMITING, SBO. Patient is to receive parenteral nutrition for prolonged NPO secondary to small bowel obstruction. - Objective Height: 5 ft 3 in Weight: 66.3 kg Intake & Output (Last 24Hrs): Intake & Output 06/25/23 06/26/23 06/27/23 06/28/23 06:59 06:59 06:59 06:59 Intake Total 50 / 50 300 / 300 1445.334 / 1445.334 Output Total 750 / 750 1050 / 1050 201 / 201 Balance -700 / -700 -750 / -750 1244.334 / 1244.334 Weight 71 kg 66.3 kg 66.3 kg Laboratory Data (Last 24 Hrs):: 06/26/23 06/27/23 12:12 06:20 Sodium 149 H 146 H Potassium 3.2 L 4.0 D Chloride 108 H 107 Carbon Dioxide 32 31 BUN 49 H 44 H Creatinine 0.72 0.72 Glucose 140 H 165 H Calcium 9.0 8.8 Phosphorus 3.6 2.0 L D Magnesium 2.9 H 2.6 H Total Bilirubin 0.5 AST 13 ALT 10 Alkaline Phosphatase 72 Triglycerides 115 Nutrition Assessment:: Please refer to the Notes section of the EMR for the most recent storage center manager note. - Assessment * LR is an 82 year old female who originally presented to ED on 06/22/23 w/ complaints of nausea/vomiting and abdominal pain. Patient was subsequently found to have high grade small bowel obstruction. * Decision was made to initiate PPN yesterday, as patient has been NPO for extended period of time * Plan is still for conservative management w/ no urgent need for surgical intervention at this time * Macronutrient recs provided by dietary, appreciated * Significant electrolyte abnormalities yesterday at time of PN initiation * Hypernatremic, hypokalemic, and hypermagnesemic * PN yesterday ~1/2 NSS in sodium content. Sodium improved to 146 mg/dL this morning. * Magnesium still elevated today. Will continue to hold magnesium in PPN. * Low phosphate this AM (2 mg/dL) - supplemented with 15 mmol IV Kphos this AM - Plan For day 1 of PN administration, the following will be ordered: Macronutrients Amino acids 85 grams/day Dextrose 100 grams/day Lipids 50 grams/day Micronutrients Sodium chloride 80 mEq Sodium acetate 80 mEq Potassium phosphate 15 mMol Potassium chloride 40 mEq Multivitamins 10 mL Trace Elements 10 mL Additional additives: thiamine 100 mg Total volume 2109 mL to be infused over 24 hrs will provide 1180 kcal/day Final osmolarity 847 mOsm/L (maximum for PPN is 900 mOsm/L) Labs to be ordered per PN order protocol Pharmacy will follow and adjust parenteral nutrition orders on a daily basis. Thank you.
[2023-06-27] MEDS ORDERED: CLINOLIPID 20% IV FAT EMULSION 250 ML IV SCH (16:00)
[2023-06-27] MEDS: PERIPHERAL TPN IV SCH ×2 (16:41)
[2023-06-27] MEDS: [UNRECOGNIZED DRUG - OTHER] IV SCH ×2 (16:41)
[2023-06-27] MEDS: FLUTICASONE PROPIONATE NA SPR 16 GM BTL SCH (20:57)
--- NOTE | 2023-06-27 21:37 | Hospitalist Progress Note ---
Date of Service June 27, 2023 Assessment & Plan (1) Small bowel obstruction: Plan: Presented to the hospital with Mid abdominal pain, nausea, and vomiting since 06/20 Last BM on Thursday 06/21 CT abdomen/pelvis on arrival revealed high-grade SBO General surgery consulted; nonoperative management for now Keep n.p.o.; hold p.o. meds NG tube placed on admission NG tube was removed on 06/27 Patient now passing gas Bowel follow through showed some contrast in the colon, which suggest obstruction is not complete Consulted pharmacy for Parenteral nutrition Appreciate surgery will repeat KUB in AM Patient appears clinically better on 06/27 (2) VALENTIN (obstructive sleep apnea): Plan: Patient reports using CPAP at night with a full facemask No other at home oxygen use Continue Flonase prior to CPAP usage (3) Hypertension: Plan: Now under better control Not on antihypertensives at home Hydralazine 5mg IV q6h as needed for SBP >180 will d/c home on anti htn med (4) Hypothyroidism: Plan: IV Levothyroxine 50microgram Q72 Hr (5) History of mastectomy: Plan: Right-sided mastectomy in 2010 No BP, labs, blood work in right arm Plan Disposition: Admit to [facility] Full code VTE PPx: Heparin 5000u q12h Admission and Anticipated Discharge Date Admission Date: June 22, 2023 Subjective Patient reports no new symptoms. Updated family at bedside. Review of Systems Review of Systems: All systems reviewed & are unremarkable except as noted in HPI & below Physical Exam Physical Exam: HEENT--PERRL, EOMI Neck--supple. No JVD. No bruits. Thyroid normal, trachea midline, no adenopathy. Heart--normal S1 and S2. No murmurs, rubs or gallops. Lungs--clear bilaterally, no respiratory distress, no accessory muscle use. Abdomen--Hyperactive bowel sounds, ng tube in situ Extremities--no cyanosis or clubbing. No edema. Dermatologic--normal skin turgor, normal color, no abnormal lymph nodes, no rash. Neurologic--cranial nerves II through XII grossly intact. Rheumatologic--normal range of motion. Psychiatric--normal affect. Results & Data Results & Data Vital Signs (Past 12 Hours) Vital Signs Temp Pulse Pulse Resp BP Pulse Ox O2 Del Method 06/27/23 19:54 36.9 C 68 16 134/72 97 Room Air 06/27/23 15:58 36.8 C 87 16 132/82 91 Room Air 06/27/23 15:02 61 06/27/23 12:01 36.8 C 86 15 122/74 93 Room Air PG Care Time/CCT Total # of Minutes Spent Total Time Spent with Patient: Total time spent is greater than 50% in coordination of care (as documented) at patient's floor/unit and/or counseling patient: Coding Level of Care Code 15874 SUB INP/OBS CARE 2/35MIN Diagnoses Small bowel obstruction K56.609 VALENTIN (obstructive sleep apnea) G47.33 Hypertension I10 Hypothyroidism E03.9 History of mastectomy Z90.10
[2023-06-27] MEDS ORDERED: STOP CLINOLIPID SCH (22:00)
[2023-06-28 06:22] LABS: Hematocrit (blood only) 35.9 % (37.0-47.0); Hemoglobin 11.6 g/dl (12.0-16.0); Mean Corpuscular Hgb Conc 32.3 g/dL (32.0-36.0); Mean Corpuscular Volume 99.2 fL (80.0-100.0); Mean Platelet Volume 11.3 fL (9.4-12.4); Platelet Count 138 K/uL (130-400); RDW Coefficient of Variation 12.8 % (11.5-14.5); RDW Standard Deviation 47.2 fL (36.4-46.3); Red Blood Count 3.62 M/uL (4.20-5.40); White Blood Count 8.03 K/ul (4.8-10.8)
[2023-06-28 07:24] LABS: Calcium 7.8 mg/dl (8.6-10.3); Magnesium 2.3 mg/dl (1.7-2.4)
[2023-06-28 07:30] LABS: BUN Creatinine Ratio 58.2 (10-20); Creatinine Clr Calc Pharmacy 75.3 ml/min; Est GFR (African American) 102.7 ml/min; Est GFR (Non-African American) 88.6 ml/min; Phosphorus 2.4 mg/dl (2.5-4.9)
[2023-06-28] MEDS: CHECK CLONIDINE PATCH PLACEMENT SCH ×3 (08:29→23:22)
[2023-06-28] MEDS: PANTOprazole 40 MG in SYRINGE 0 ML IV SCH ×2 (08:29→20:51)
[2023-06-28] MEDS: HEPARIN SOD 5,000 UNIT/0.5 ML VIAL SQ SCH ×2 (08:29→20:51)
--- NOTE | 2023-06-28 10:44 | XRay Report ---
KUB CLINICAL HISTORY: Small bowel obstruction. FINDINGS: 2 AP, portable, supine abdominal radiographs are compared to study dated 06/26/2023 and cor related with abdominal CT dated 06/22/2023. Residual enteric contrast is again seen throughout the co laura. This outlines colonic diverticulosis. There is continued gaseous distention of the small bowel l oops which measure up to 4.7 cm. This indicates persistent obstruction. No evidence of intraperitonea l free air is seen on these supine images. Cholecystectomy clips are noted in the right upper quadran t. No abnormal abdominal calcifications are identified. The skeletal structures are osteopenic and ap pear intact. Moderate lumbosacral spondylosis is observed. IMPRESSION: Persistent small bowel obstruction. Findings are similar to the 06/26/2023 examination. Electronically signed by: Jason Rowe M.D. 06/28/2023 10:43 AM
[2023-06-28] MEDS: PERIPHERAL TPN IV SCH (12:05)
[2023-06-28] MEDS: [UNRECOGNIZED DRUG - OTHER] IV SCH (12:05)
[2023-06-28] MEDS ORDERED: CLINOLIPID 20% IV FAT EMULSION 250 ML IV SCH (16:00)
[2023-06-28] MEDS ORDERED: PERIPHERAL TPN IV SCH (16:00)
[2023-06-28] MEDS ORDERED: [UNRECOGNIZED DRUG - OTHER] IV SCH (16:00)
--- NOTE | 2023-06-28 16:38 | Surgery Progress Note ---
Date of Service June 28, 2023 Assessment & Plan (1) SBO (small bowel obstruction): Plan: 82 year-old female with SBO, pt feels better, passed some flatus, no fever, no significant abdominal pain, continue non-operative management, keep clear diet now. will F/U. Admission and Anticipated Discharge Date Admission Date: June 22, 2023 Subjective F/U SBO, pt feels better, less abdominal pain, passed some flatus, no BM yet, clear diet, tolerated it. no fever. Physical Exam Constitutional: WD/WN, vitals as above Eyes: PERRL, conjunctivae normal, anicteric sclerae Neck: trachea midline, no thyromegaly Respiratory: normal respiratory effort, lungs clear to auscultation Cardiovascular: RRR, no murmur, no edema Gastrointestinal (Abdomen): soft, no significant tenderness at abdomen, no rebound pain, no distend , BS +. Neurologic: patellar DTR's 2+ bilat, sensation intact Psychiatric: A+Ox3, euthymic affect Results & Data Vital Signs (Past 12 Hours) Vital Signs Temp Pulse Pulse Resp BP Pulse Ox O2 Del Method 06/28/23 15:42 77 06/28/23 15:34 37.0 C 64 16 158/71 H 90 Room Air 06/28/23 11:48 37.0 C 56 L 16 154/76 H 95 Room Air 06/28/23 07:33 36.6 C 70 16 157/71 H 89 L Room Air 06/28/23 06:57 74 Laboratory Results Lab Results 06/22/23 06/22/23 06/22/23 Range/Units 11:15 11:18 13:19 WBC 10.59 (4.8-10.8) K/ul RBC 4.78 (4.20-5.40) M/uL Hgb 15.4 (12.0-16.0) g/dl Hct 45.5 (37.0-47.0) % MCV 95.2 (80.0-100.0) fL MCH 32.2 (25.0-34.0) pg MCHC 33.8 (32.0-36.0) g/dL RDW Std Deviation 43.9 (36.4-46.3) fL RDW Coeff of Julita 12.5 (11.5-14.5) % Plt Count 204 (130-400) K/uL MPV 10.2 (9.4-12.4) fL Immature Gran % (Auto) 0.3 % Neut % (Auto) 75.0 % Lymph % (Auto) 13.5 % C[place] % (Auto) 10.9 % Eos % (Auto) 0.0 % Baso % (Auto) 0.3 % Neut # (Auto) 7.95 H (1.40-6.50) K/uL Lymph # (Auto) 1.43 (1.20-3.40) K/uL [place] # (Auto) 1.15 H (0.11-0.59) K/uL Eos # (Auto) 0.00 (0.00-0.50) K/uL Baso # (Auto) 0.03 (0.00-0.20) K/uL Immature Gran # (Auto) 0.03 (0.01-0.20) K/uL Sodium 138 (136-145) mmol/L Potassium 4.1 (3.5-5.1) mmol/L Chloride 100 (98-107) mmol/L Carbon Dioxide 28 (21-32) mmol/L Anion Gap 10 (3-11) BUN 32 H (6-23) mg/dl Creatinine 0.91 (0.6-1.2) mg/dl Est Cr Clr Drug Dosing 46.1 ml/min Est GFR ( Amer) 69.1 ml/min Est GFR (Non-Af Amer) 59.6 ml/min BUN/Creatinine Ratio 35.2 H (10-20) Glucose 139 H (70-99(Fasting)) mg/dl POC Glucose (70-99) mg/dl Fasting Glucose (70-99) mg/dl Lactate 1.5 (0.4-2.0) mmol/L Calcium 9.8 (8.6-10.3) mg/dl Phosphorus (2.5-4.9) mg/dl Magnesium 2.2 (1.7-2.4) mg/dl Total Bilirubin 0.7 (0.2-1.0) mg/dl AST 19 (13-39) U/L ALT 13 (7-52) U/L Alkaline Phosphatase 115 H (34-104) U/L C-Reactive Protein 0.81 H (0-0.5) mg/dl Total Protein 7.6 (6.0-8.3) gm/dl Albumin 4.4 (3.4-5.0) gm/dl Globulin 3.2 (2.5-4.0) gm/dl Albumin/Globulin Ratio 1.4 (0.9-2) Triglycerides (0-150) mg/dl Lipase 11 (11-82) U/L Procalcitonin < 0.05 (0-0.5) ng/ml Urine Color Urine Appearance (Clear) Urine pH (4.5-7.5) Ur Specific Franklin (1.000-1.030) Urine Protein (Negative) Urine Glucose (UA) (Negative) Urine Ketones (Negative) Urine Blood (Negative) Urine Nitrite (Negative) Urine Bilirubin (Negative) Urine Urobilinogen (Negative) Ur Leukocyte Esterase (Negative) Urine WBC (Auto) (0-5) /hpf Urine RBC (Auto) (0-4) /hpf U Hyaline Cast (Auto) (0-5) /lpf U Epithel Cells (Auto) (0-5) /lpf Urine Bacteria (Auto) (Negative) 06/22/23 06/23/23 06/24/23 Range/Units 21:58 06:12 05:35 WBC 7.42 9.92 (4.8-10.8) K/ul RBC 4.25 4.57 (4.20-5.40) M/uL Hgb 13.6 14.8 (12.0-16.0) g/dl Hct 39.6 43.0 (37.0-47.0) % MCV 93.2 94.1 (80.0-100.0) fL MCH 32.0 32.4 (25.0-34.0) pg MCHC 34.3 34.4 (32.0-36.0) g/dL RDW Std Deviation 42.9 43.5 (36.4-46.3) fL RDW Coeff of Julita 12.5 12.5 (11.5-14.5) % Plt Count 161 166 (130-400) K/uL MPV 10.2 10.9 (9.4-12.4) fL Immature Gran % (Auto) 0.4 0.5 % Neut % (Auto) 76.3 74.8 % Lymph % (Auto) 12.9 11.0 % [place] % (Auto) 10.0 13.3 % Eos % (Auto) 0.0 0.1 % Baso % (Auto) 0.4 0.3 % Neut # (Auto) 5.66 7.42 H (1.40-6.50) K/uL Lymph # (Auto) 0.96 L 1.09 L (1.20-3.40) K/uL [place] # (Auto) 0.74 H 1.32 H (0.11-0.59) K/uL Eos # (Auto) 0.00 0.01 (0.00-0.50) K/uL Baso # (Auto) 0.03 0.03 (0.00-0.20) K/uL Immature Gran # (Auto) 0.03 0.05 (0.01-0.20) K/uL Sodium 141 141 (136-145) mmol/L Potassium 3.6 3.8 (3.5-5.1) mmol/L Chloride 105 105 (98-107) mmol/L Carbon Dioxide 27 27 (21-32) mmol/L Anion Gap 9 9 (3-11) BUN 23 23 (6-23) mg/dl Creatinine 0.54 L D 0.52 L (0.6-1.2) mg/dl Est Cr Clr Drug Dosing 78.1 82.7 ml/min Est GFR ( Amer) 103.3 104.6 ml/min Est GFR (Non-Af Amer) 89.1 90.2 ml/min BUN/Creatinine Ratio 44.2 H (10-20) Glucose 144 H (70-99(Fasting)) mg/dl POC Glucose (70-99) mg/dl Fasting Glucose 142 H 144 H (70-99) mg/dl Lactate (0.4-2.0) mmol/L Calcium 8.5 L 9.1 (8.6-10.3) mg/dl Phosphorus (2.5-4.9) mg/dl Magnesium 2.1 (1.7-2.4) mg/dl Total Bilirubin (0.2-1.0) mg/dl AST (13-39) U/L ALT (7-52) U/L Alkaline Phosphatase (34-104) U/L C-Reactive Protein 0.65 H (0-0.5) mg/dl Total Protein (6.0-8.3) gm/dl Albumin (3.4-5.0) gm/dl Globulin (2.5-4.0) gm/dl Albumin/Globulin Ratio (0.9-2) Triglycerides (0-150) mg/dl Lipase (11-82) U/L Procalcitonin (0-0.5) ng/ml Urine Color Yellow Urine Appearance Clear (Clear) Urine pH 5.5 (4.5-7.5) Ur Specific Franklin > 1.045 H (1.000-1.030) Urine Protein Trace H (Negative) Urine Glucose (UA) Negative (Negative) Urine Ketones 2+ H (Negative) Urine Blood Negative (Negative) Urine Nitrite Negative (Negative) Urine Bilirubin Negative (Negative) Urine Urobilinogen Negative (Negative) Ur Leukocyte Esterase 1+ H (Negative) Urine WBC (Auto) >30 H (0-5) /hpf Urine RBC (Auto) 0-4 (0-4) /hpf U Hyaline Cast (Auto) 1-5 (0-5) /lpf U Epithel Cells (Auto) >30 H (0-5) /lpf Urine Bacteria (Auto) Negative (Negative) 06/25/23 06/25/23 06/25/23 Range/Units 04:21 11:51 17:46 WBC 9.03 (4.8-10.8) K/ul RBC 4.39 (4.20-5.40) M/uL Hgb 14.0 (12.0-16.0) g/dl Hct 41.9 (37.0-47.0) % MCV 95.4 (80.0-100.0) fL MCH 31.9 (25.0-34.0) pg MCHC 33.4 (32.0-36.0) g/dL RDW Std Deviation 45.7 (36.4-46.3) fL RDW Coeff of Julita 12.8 (11.5-14.5) % Plt Count 169 (130-400) K/uL MPV 10.8 (9.4-12.4) fL Immature Gran % (Auto) 0.2 % Neut % (Auto) 74.0 % Lymph % (Auto) 11.4 % [place] % (Auto) 14.1 % Eos % (Auto) 0.1 % Baso % (Auto) 0.2 % Neut # (Auto) 6.68 H (1.40-6.50) K/uL Lymph # (Auto) 1.03 L (1.20-3.40) K/uL [place] # (Auto) 1.27 H (0.11-0.59) K/uL Eos # (Auto) 0.01 (0.00-0.50) K/uL Baso # (Auto) 0.02 (0.00-0.20) K/uL Immature Gran # (Auto) 0.02 (0.01-0.20) K/uL Sodium 145 (136-145) mmol/L Potassium 3.2 L (3.5-5.1) mmol/L Chloride 106 (98-107) mmol/L Carbon Dioxide 30 (21-32) mmol/L Anion Gap 9 (3-11) BUN 36 H (6-23) mg/dl Creatinine 0.63 (0.6-1.2) mg/dl Est Cr Clr Drug Dosing 68.3 ml/min Est GFR ( Amer) 98.2 ml/min Est GFR (Non-Af Amer) 84.7 ml/min BUN/Creatinine Ratio 57.1 H (10-20) Glucose 130 H (70-99(Fasting)) mg/dl POC Glucose 97 121 H (70-99) mg/dl Fasting Glucose 130 H (70-99) mg/dl Lactate (0.4-2.0) mmol/L Calcium 9.3 (8.6-10.3) mg/dl Phosphorus (2.5-4.9) mg/dl Magnesium (1.7-2.4) mg/dl Total Bilirubin (0.2-1.0) mg/dl AST (13-39) U/L ALT (7-52) U/L Alkaline Phosphatase (34-104) U/L C-Reactive Protein (0-0.5) mg/dl Total Protein (6.0-8.3) gm/dl Albumin (3.4-5.0) gm/dl Globulin (2.5-4.0) gm/dl Albumin/Globulin Ratio (0.9-2) Triglycerides (0-150) mg/dl Lipase (11-82) U/L Procalcitonin (0-0.5) ng/ml Urine Color Urine Appearance (Clear) Urine pH (4.5-7.5) Ur Specific Franklin (1.000-1.030) Urine Protein (Negative) Urine Glucose (UA) (Negative) Urine Ketones (Negative) Urine Blood (Negative) Urine Nitrite (Negative) Urine Bilirubin (Negative) Urine Urobilinogen (Negative) Ur Leukocyte Esterase (Negative) Urine WBC (Auto) (0-5) /hpf Urine RBC (Auto) (0-4) /hpf U Hyaline Cast (Auto) (0-5) /lpf U Epithel Cells (Auto) (0-5) /lpf Urine Bacteria (Auto) (Negative) 06/26/23 06/26/23 06/27/23 Range/Units 03:48 12:12 01:01 WBC 8.74 (4.8-10.8) K/ul RBC 4.33 (4.20-5.40) M/uL Hgb 13.7 (12.0-16.0) g/dl Hct 42.0 (37.0-47.0) % MCV 97.0 (80.0-100.0) fL MCH 31.6 (25.0-34.0) pg MCHC 32.6 (32.0-36.0) g/dL RDW Std Deviation 47.7 H (36.4-46.3) fL RDW Coeff of Julita 13.2 (11.5-14.5) % Plt Count 168 (130-400) K/uL MPV 11.1 (9.4-12.4) fL Immature Gran % (Auto) % Neut % (Auto) % Lymph % (Auto) % [place] % (Auto) % Eos % (Auto) % Baso % (Auto) % Neut # (Auto) (1.40-6.50) K/uL Lymph # (Auto) (1.20-3.40) K/uL [place] # (Auto) (0.11-0.59) K/uL Eos # (Auto) (0.00-0.50) K/uL Baso # (Auto) (0.00-0.20) K/uL Immature Gran # (Auto) (0.01-0.20) K/uL Sodium 150 H 149 H (136-145) mmol/L Potassium 3.2 L 3.2 L (3.5-5.1) mmol/L Chloride 107 108 H (98-107) mmol/L Carbon Dioxide 30 32 (21-32) mmol/L Anion Gap 13 H 9 (3-11) BUN 53 H 49 H (6-23) mg/dl Creatinine 0.88 0.72 (0.6-1.2) mg/dl Est Cr Clr Drug Dosing 48.2 57.0 ml/min Est GFR ( Amer) 71.9 91.7 ml/min Est GFR (Non-Af Amer) 62.1 79.1 ml/min BUN/Creatinine Ratio 60.2 H 68.1 H (10-20) Glucose 122 H 140 H (70-99(Fasting)) mg/dl POC Glucose 165 H (70-99) mg/dl Fasting Glucose (70-99) mg/dl Lactate (0.4-2.0) mmol/L Calcium 9.4 9.0 (8.6-10.3) mg/dl Phosphorus 3.6 (2.5-4.9) mg/dl Magnesium 2.9 H (1.7-2.4) mg/dl Total Bilirubin 0.5 (0.2-1.0) mg/dl AST 13 (13-39) U/L ALT 10 (7-52) U/L Alkaline Phosphatase 72 (34-104) U/L C-Reactive Protein (0-0.5) mg/dl Total Protein (6.0-8.3) gm/dl Albumin (3.4-5.0) gm/dl Globulin (2.5-4.0) gm/dl Albumin/Globulin Ratio (0.9-2) Triglycerides 115 (0-150) mg/dl Lipase (11-82) U/L Procalcitonin (0-0.5) ng/ml Urine Color Urine Appearance (Clear) Urine pH (4.5-7.5) Ur Specific Franklin (1.000-1.030) Urine Protein (Negative) Urine Glucose (UA) (Negative) Urine Ketones (Negative) Urine Blood (Negative) Urine Nitrite (Negative) Urine Bilirubin (Negative) Urine Urobilinogen (Negative) Ur Leukocyte Esterase (Negative) Urine WBC (Auto) (0-5) /hpf Urine RBC (Auto) (0-4) /hpf U Hyaline Cast (Auto) (0-5) /lpf U Epithel Cells (Auto) (0-5) /lpf Urine Bacteria (Auto) (Negative) 06/27/23 06/27/23 06/27/23 Range/Units 05:42 06:20 06:21 WBC 10.60 (4.8-10.8) K/ul RBC 4.39 (4.20-5.40) M/uL Hgb 14.1 (12.0-16.0) g/dl Hct 43.8 (37.0-47.0) % MCV 99.8 (80.0-100.0) fL MCH 32.1 (25.0-34.0) pg MCHC 32.2 (32.0-36.0) g/dL RDW Std Deviation 48.1 H (36.4-46.3) fL RDW Coeff of Julita 13.0 (11.5-14.5) % Plt Count 183 (130-400) K/uL MPV 11.9 (9.4-12.4) fL Immature Gran % (Auto) 0.6 % Neut % (Auto) 69.6 % Lymph % (Auto) 19.3 % [place] % (Auto) 9.2 % Eos % (Auto) 0.8 % Baso % (Auto) 0.5 % Neut # (Auto) 7.37 H (1.40-6.50) K/uL Lymph # (Auto) 2.05 (1.20-3.40) K/uL [place] # (Auto) 0.98 H (0.11-0.59) K/uL Eos # (Auto) 0.09 (0.00-0.50) K/uL Baso # (Auto) 0.05 (0.00-0.20) K/uL Immature Gran # (Auto) 0.06 (0.01-0.20) K/uL Sodium 146 H (136-145) mmol/L Potassium 4.0 D (3.5-5.1) mmol/L Chloride 107 (98-107) mmol/L Carbon Dioxide 31 (21-32) mmol/L Anion Gap 8 (3-11) BUN 44 H (6-23) mg/dl Creatinine 0.72 (0.6-1.2) mg/dl Est Cr Clr Drug Dosing 57.0 ml/min Est GFR ( Amer) 91.7 ml/min Est GFR (Non-Af Amer) 79.1 ml/min BUN/Creatinine Ratio 61.1 H (10-20) Glucose 165 H (70-99(Fasting)) mg/dl POC Glucose 160 H (70-99) mg/dl Fasting Glucose (70-99) mg/dl Lactate (0.4-2.0) mmol/L Calcium 8.8 (8.6-10.3) mg/dl Phosphorus 2.0 L D (2.5-4.9) mg/dl Magnesium 2.6 H (1.7-2.4) mg/dl Total Bilirubin (0.2-1.0) mg/dl AST (13-39) U/L ALT (7-52) U/L Alkaline Phosphatase (34-104) U/L C-Reactive Protein (0-0.5) mg/dl Total Protein (6.0-8.3) gm/dl Albumin (3.4-5.0) gm/dl Globulin (2.5-4.0) gm/dl Albumin/Globulin Ratio (0.9-2) Triglycerides (0-150) mg/dl Lipase (11-82) U/L Procalcitonin (0-0.5) ng/ml Urine Color Urine Appearance (Clear) Urine pH (4.5-7.5) Ur Specific Franklin (1.000-1.030) Urine Protein (Negative) Urine Glucose (UA) (Negative) Urine Ketones (Negative) Urine Blood (Negative) Urine Nitrite (Negative) Urine Bilirubin (Negative) Urine Urobilinogen (Negative) Ur Leukocyte Esterase (Negative) Urine WBC (Auto) (0-5) /hpf Urine RBC (Auto) (0-4) /hpf U Hyaline Cast (Auto) (0-5) /lpf U Epithel Cells (Auto) (0-5) /lpf Urine Bacteria (Auto) (Negative) 06/27/23 06/28/23 06/28/23 Range/Units 11:57 06:04 06:45 WBC 8.03 (4.8-10.8) K/ul RBC 3.62 L (4.20-5.40) M/uL Hgb 11.6 L (12.0-16.0) g/dl Hct 35.9 L (37.0-47.0) % MCV 99.2 (80.0-100.0) fL MCH 32.0 (25.0-34.0) pg MCHC 32.3 (32.0-36.0) g/dL RDW Std Deviation 47.2 H (36.4-46.3) fL RDW Coeff of Julita 12.8 (11.5-14.5) % Plt Count 138 (130-400) K/uL MPV 11.3 (9.4-12.4) fL Immature Gran % (Auto) % Neut % (Auto) % Lymph % (Auto) % [place] % (Auto) % Eos % (Auto) % Baso % (Auto) % Neut # (Auto) (1.40-6.50) K/uL Lymph # (Auto) (1.20-3.40) K/uL [place] # (Auto) (0.11-0.59) K/uL Eos # (Auto) (0.00-0.50) K/uL Baso # (Auto) (0.00-0.20) K/uL Immature Gran # (Auto) (0.01-0.20) K/uL Sodium 143 (136-145) mmol/L Potassium 4.0 (3.5-5.1) mmol/L Chloride 110 H (98-107) mmol/L Carbon Dioxide 29 (21-32) mmol/L Anion Gap 4 (3-11) BUN 32 H (6-23) mg/dl Creatinine 0.55 L (0.6-1.2) mg/dl Est Cr Clr Drug Dosing 75.3 ml/min Est GFR ( Amer) 102.7 ml/min Est GFR (Non-Af Amer) 88.6 ml/min BUN/Creatinine Ratio 58.2 H (10-20) Glucose 145 H (70-99(Fasting)) mg/dl POC Glucose 140 H 135 H (70-99) mg/dl Fasting Glucose (70-99) mg/dl Lactate (0.4-2.0) mmol/L Calcium 7.8 L (8.6-10.3) mg/dl Phosphorus 2.4 L (2.5-4.9) mg/dl Magnesium 2.3 (1.7-2.4) mg/dl Total Bilirubin (0.2-1.0) mg/dl AST (13-39) U/L ALT (7-52) U/L Alkaline Phosphatase (34-104) U/L C-Reactive Protein (0-0.5) mg/dl Total Protein (6.0-8.3) gm/dl Albumin (3.4-5.0) gm/dl Globulin (2.5-4.0) gm/dl Albumin/Globulin Ratio (0.9-2) Triglycerides (0-150) mg/dl Lipase (11-82) U/L Procalcitonin (0-0.5) ng/ml Urine Color Urine Appearance (Clear) Urine pH (4.5-7.5) Ur Specific Franklin (1.000-1.030) Urine Protein (Negative) Urine Glucose (UA) (Negative) Urine Ketones (Negative) Urine Blood (Negative) Urine Nitrite (Negative) Urine Bilirubin (Negative) Urine Urobilinogen (Negative) Ur Leukocyte Esterase (Negative) Urine WBC (Auto) (0-5) /hpf Urine RBC (Auto) (0-4) /hpf U Hyaline Cast (Auto) (0-5) /lpf U Epithel Cells (Auto) (0-5) /lpf Urine Bacteria (Auto) (Negative) 06/28/23 Range/Units 11:57 WBC (4.8-10.8) K/ul RBC (4.20-5.40) M/uL Hgb (12.0-16.0) g/dl Hct (37.0-47.0) % MCV (80.0-100.0) fL MCH (25.0-34.0) pg MCHC (32.0-36.0) g/dL RDW Std Deviation (36.4-46.3) fL RDW Coeff of Julita (11.5-14.5) % Plt Count (130-400) K/uL MPV (9.4-12.4) fL Immature Gran % (Auto) % Neut % (Auto) % Lymph % (Auto) % Cataño % (Auto) % Eos % (Auto) % Baso % (Auto) % Neut # (Auto) (1.40-6.50) K/uL Lymph # (Auto) (1.20-3.40) K/uL Cataño # (Auto) (0.11-0.59) K/uL Eos # (Auto) (0.00-0.50) K/uL Baso # (Auto) (0.00-0.20) K/uL Immature Gran # (Auto) (0.01-0.20) K/uL Sodium (136-145) mmol/L Potassium (3.5-5.1) mmol/L Chloride (98-107) mmol/L Carbon Dioxide (21-32) mmol/L Anion Gap (3-11) BUN (6-23) mg/dl Creatinine (0.6-1.2) mg/dl Est Cr Clr Drug Dosing ml/min Est GFR ( Amer) ml/min Est GFR (Non-Af Amer) ml/min BUN/Creatinine Ratio (10-20) Glucose (70-99(Fasting)) mg/dl POC Glucose 129 H (70-99) mg/dl Fasting Glucose (70-99) mg/dl Lactate (0.4-2.0) mmol/L Calcium (8.6-10.3) mg/dl Phosphorus (2.5-4.9) mg/dl Magnesium (1.7-2.4) mg/dl Total Bilirubin (0.2-1.0) mg/dl AST (13-39) U/L ALT (7-52) U/L Alkaline Phosphatase (34-104) U/L C-Reactive Protein (0-0.5) mg/dl Total Protein (6.0-8.3) gm/dl Albumin (3.4-5.0) gm/dl Globulin (2.5-4.0) gm/dl Albumin/Globulin Ratio (0.9-2) Triglycerides (0-150) mg/dl Lipase (11-82) U/L Procalcitonin (0-0.5) ng/ml Urine Color Urine Appearance (Clear) Urine pH (4.5-7.5) Ur Specific Franklin (1.000-1.030) Urine Protein (Negative) Urine Glucose (UA) (Negative) Urine Ketones (Negative) Urine Blood (Negative) Urine Nitrite (Negative) Urine Bilirubin (Negative) Urine Urobilinogen (Negative) Ur Leukocyte Esterase (Negative) Urine WBC (Auto) (0-5) /hpf Urine RBC (Auto) (0-4) /hpf U Hyaline Cast (Auto) (0-5) /lpf U Epithel Cells (Auto) (0-5) /lpf Urine Bacteria (Auto) (Negative) Diagnostic Findings [facility] CLINICAL HISTORY: Small bowel obstruction. FINDINGS: 2 AP, portable, supine abdominal radiographs are compared to study dated 06/26/2023 and correlated with abdominal CT dated 06/22/2023. Residual enteric contrast is again seen throughout the colon. This outlines colonic diverticulosis. There is continued gaseous distention of the small bowel loops which measure up to 4.7 cm. This indicates persistent obstruction. No evidence of intraperitoneal free air is seen on these supine images. Cholecystectomy clips are noted in the right upper quadrant. No abnormal abdominal calcifications are identified. The skeletal structures are osteopenic and appear intact. Moderate lumbosacral spondylosis is observed. IMPRESSION: Persistent small bowel obstruction. Findings are similar to the 06/26/2023 examination.
[2023-06-28] MEDS: FLUTICASONE PROPIONATE NA SPR 16 GM BTL SCH (20:52)
--- NOTE | 2023-06-28 21:35 | Hospitalist Progress Note ---
Date of Service June 28, 2023 Assessment & Plan (1) Small bowel obstruction: Plan: Presented to the hospital with Mid abdominal pain, nausea, and vomiting since 06/20 Last BM on Thursday 06/21 CT abdomen/pelvis on arrival revealed high-grade SBO General surgery consulted; nonoperative management for now Keep n.p.o.; hold p.o. meds NG tube placed on admission NG tube was removed on 06/27 Patient now passing gas Bowel follow through showed some contrast in the colon, which suggest obstruction is not complete Consulted pharmacy for Parenteral nutrition Appreciate surgery will repeat KUB in AM: on 06/28, KUb shows SBO. Patient appears clinically better on 06/28 (2) VALENTIN (obstructive sleep apnea): Plan: Patient reports using CPAP at night with a full facemask No other at home oxygen use Continue Flonase prior to CPAP usage (3) Hypertension: Plan: Now under better control Not on antihypertensives at home Hydralazine 5mg IV q6h as needed for SBP >180 will d/c home on anti htn med (4) Hypothyroidism: Plan: IV Levothyroxine 50microgram Q72 Hr (5) History of mastectomy: Plan: Right-sided mastectomy in 2010 No BP, labs, blood work in right arm Plan Disposition: Admit to [facility] Full code VTE PPx: Heparin 5000u q12h Admission and Anticipated Discharge Date Admission Date: June 22, 2023 Subjective Patient is tolerating her diet. She is passing gas and had a BM. Review of Systems Review of Systems: All systems reviewed & are unremarkable except as noted in HPI & below Physical Exam Physical Exam: HEENT--PERRL, EOMI Neck--supple. No JVD. No bruits. Thyroid normal, trachea midline, no adenopathy. Heart--normal S1 and S2. No murmurs, rubs or gallops. Lungs--clear bilaterally, no respiratory distress, no accessory muscle use. Abdomen--Hyperactive bowel sounds, ng tube in situ Extremities--no cyanosis or clubbing. No edema. Dermatologic--normal skin turgor, normal color, no abnormal lymph nodes, no rash. Neurologic--cranial nerves II through XII grossly intact. Rheumatologic--normal range of motion. Psychiatric--normal affect. Results & Data Results & Data Vital Signs (Past 12 Hours) Vital Signs Temp Pulse Pulse Pulse Resp BP Pulse Ox 06/28/23 21:18 148/75 H 06/28/23 20:03 36.3 C L 63 18 201/68 H 94 06/28/23 15:42 77 06/28/23 15:34 37.0 C 64 16 158/71 H 90 06/28/23 11:48 37.0 C 56 L 16 154/76 H 95 O2 Del Method 06/28/23 21:18 06/28/23 20:03 Room Air 06/28/23 15:42 06/28/23 15:34 Room Air 06/28/23 11:48 Room Air PG Care Time/CCT Total # of Minutes Spent Total Time Spent with Patient: Total time spent is greater than 50% in coordination of care (as documented) at patient's floor/unit and/or counseling patient: Coding Level of Care Code 16252 SUB INP/OBS CARE 2/35MIN Diagnoses Small bowel obstruction K56.609 VALENTIN (obstructive sleep apnea) G47.33 Hypertension I10 Hypothyroidism E03.9 History of mastectomy Z90.10
[2023-06-29 07:25] LABS: Hemoglobin 11.9 g/dl (12.0-16.0); Mean Corpuscular Hemoglobin 32.3 pg (25.0-34.0); Mean Corpuscular Hgb Conc 33.1 g/dL (32.0-36.0); Mean Corpuscular Volume 97.8 fL (80.0-100.0); Mean Platelet Volume 12.2 fL (9.4-12.4); Platelet Count 144 K/uL (130-400); RDW Coefficient of Variation 12.7 % (11.5-14.5); RDW Standard Deviation 45.7 fL (36.4-46.3); Red Blood Count 3.68 M/uL (4.20-5.40); White Blood Count 7.83 K/ul (4.8-10.8)
[2023-06-29 07:44] LABS: Albumin Level 3.1 gm/dl (3.4-5.0); BUN Creatinine Ratio 31.4 (10-20); Calcium 7.8 mg/dl (8.6-10.3); Creatinine Clr Calc Pharmacy 81.2 ml/min; Est GFR (African American) 105.3 ml/min; Est GFR (Non-African American) 90.8 ml/min; Magnesium 2.1 mg/dl (1.7-2.4); Potassium 3.9 mmol/L (3.5-5.1)
[2023-06-29] MEDS: PANTOprazole 40 MG in SYRINGE 0 ML IV SCH ×2 (08:29→20:55)
[2023-06-29] MEDS: HEPARIN SOD 5,000 UNIT/0.5 ML VIAL SQ SCH ×2 (08:37→20:54)
[2023-06-29] MEDS: CHECK CLONIDINE PATCH PLACEMENT SCH ×2 (08:40→17:32)
--- NOTE | 2023-06-29 09:49 | XRay Report ---
KUB HISTORY: Small bowel obstruction. COMPARISON: KUB 06/28/2023. FINDINGS: Dilated gas-filled loops of small bowel are again seen throughout the abdomen measuring up to 4.7 cm in diameter. This is similar to the prior study. Contrast is seen within the distal colon a nd rectum. Colonic diverticulosis is noted. Prior cholecystectomy. No renal calculi. No ureteral lakeisha culi. No pneumoperitoneum or pneumatosis. IMPRESSION: No significant change in the distended gas-filled loops of small bowel seen throughout the abdomen. T his suggests a persistent partial small bowel obstruction. ACT 112: Negative or not required by law. Electronically signed by: Khalif Snow M.D. 06/29/2023 9:47 AM
--- NOTE | 2023-06-29 19:57 | Surgery Progress Note ---
Date of Service June 29, 2023 Assessment & Plan (1) SBO (small bowel obstruction): Plan: 82 year-old female with SBO, pt feels better, passed some flatus, no fever, no significant abdominal pain, continue non-operative management, keep clear diet now. will F/U. 06/29/2023 7:56 Pm doing better, passed BM, no abdominal pain, full liquid diet will F/U. Admission and Anticipated Discharge Date Admission Date: June 22, 2023 Subjective Patient is tolerating her diet. She is passing gas and had a BM. 06/29/2023 7:[address] James F/U SBO, pt feels better, less abdominal pain, passed BM, tolerated clear diet, no fever. Physical Exam Constitutional: WD/WN, vitals as above Eyes: PERRL, conjunctivae normal, anicteric sclerae Neck: trachea midline, no thyromegaly Respiratory: normal respiratory effort, lungs clear to auscultation Cardiovascular: RRR, no murmur, no edema Gastrointestinal (Abdomen): soft, NT, ND , BS + Neurologic: patellar DTR's 2+ bilat, sensation intact Psychiatric: A+Ox3, euthymic affect Results & Data Vital Signs (Past 12 Hours) Vital Signs Temp Pulse Pulse Resp BP Pulse Ox O2 Del Method 06/29/23 19:30 37.4 C 64 18 184/67 H 93 Room Air 06/29/23 16:41 75 06/29/23 15:00 36.9 C 61 16 145/62 H 94 Room Air 06/29/23 11:47 36.6 C 57 L 16 158/64 H 95 Room Air Laboratory Results Procedures Abnormal lab results 06/29/23 Range/Units 06:43 RBC 3.68 L (4.20-5.40) M/uL Hgb 11.9 L (12.0-16.0) g/dl Hct 36.0 L (37.0-47.0) % Sodium 135 L (136-145) mmol/L Creatinine 0.51 L (0.6-1.2) mg/dl BUN/Creatinine Ratio 31.4 H (10-20) Glucose 110 H (70-99(Fasting)) mg/dl Calcium 7.8 L (8.6-10.3) mg/dl Phosphorus 2.0 L (2.5-4.9) mg/dl Albumin 3.1 L (3.4-5.0) gm/dl
[2023-06-29] MEDS: FLUTICASONE PROPIONATE NA SPR 16 GM BTL SCH (20:54)
--- NOTE | 2023-06-29 22:11 | Hospitalist Progress Note ---
Date of Service June 29, 2023 Assessment & Plan (1) Small bowel obstruction: Plan: Presented to the hospital with Mid abdominal pain, nausea, and vomiting since 06/20 Last BM on Thursday 06/21 CT abdomen/pelvis on arrival revealed high-grade SBO General surgery consulted; nonoperative management for now Keep n.p.o.; hold p.o. meds NG tube placed on admission NG tube was removed on 06/27 Patient now passing gas Bowel follow through showed some contrast in the colon, which suggest obstruction is not complete Consulted pharmacy for Parenteral nutrition Appreciate surgery will repeat KUB in AM: on 06/29, KUb shows SBO. Patient appears clinically better on 06/11 despite no changes on imaging, patient contiues to pass gas and have BM. Will advance diet to full liquid. (2) VALENTIN (obstructive sleep apnea): Plan: Patient reports using CPAP at night with a full facemask No other at home oxygen use Continue Flonase prior to CPAP usage (3) Hypertension: Plan: Now under better control Not on antihypertensives at home Hydralazine 5mg IV q6h as needed for SBP >180 will d/c home on anti htn med (4) Hypothyroidism: Plan: IV Levothyroxine 50microgram Q72 Hr (5) History of mastectomy: Plan: Right-sided mastectomy in 2010 No BP, labs, blood work in right arm Plan Disposition: Admit to [facility] Full code VTE PPx: Heparin 5000u q12h Admission and Anticipated Discharge Date Admission Date: June 22, 2023 Subjective Patient reports tolerating her diet and passing gas and having a BM. Review of Systems Review of Systems: All systems reviewed & are unremarkable except as noted in HPI & below Physical Exam Physical Exam: HEENT--PERRL, EOMI Neck--supple. No JVD. No bruits. Thyroid normal, trachea midline, no adenopathy. Heart--normal S1 and S2. No murmurs, rubs or gallops. Lungs--clear bilaterally, no respiratory distress, no accessory muscle use. Abdomen--Hyperactive bowel sounds, ng tube in situ Extremities--no cyanosis or clubbing. No edema. Dermatologic--normal skin turgor, normal color, no abnormal lymph nodes, no rash. Neurologic--cranial nerves II through XII grossly intact. Rheumatologic--normal range of motion. Psychiatric--normal affect. Results & Data Results & Data Vital Signs (Past 12 Hours) Vital Signs Temp Pulse Pulse Resp BP Pulse Ox O2 Del Method 06/29/23 19:30 37.4 C 64 18 184/67 H 93 Room Air 06/29/23 16:41 75 06/29/23 15:00 36.9 C 61 16 145/62 H 94 Room Air 06/29/23 11:47 36.6 C 57 L 16 158/64 H 95 Room Air PG Care Time/CCT Total # of Minutes Spent Total Time Spent with Patient: Total time spent is greater than 50% in coordination of care (as documented) at patient's floor/unit and/or counseling patient: Coding Level of Care Code 51456 SUB INP/OBS CARE 2/35MIN Diagnoses Small bowel obstruction K56.609 VALENTIN (obstructive sleep apnea) G47.33 Hypertension I10 Hypothyroidism E03.9 History of mastectomy Z90.10
[2023-06-30] MEDS: CHECK CLONIDINE PATCH PLACEMENT SCH ×3 (00:18→17:16)
[2023-06-30 07:30] LABS: Hematocrit (blood only) 37.7 % (37.0-47.0); Hemoglobin 12.4 g/dl (12.0-16.0); Mean Corpuscular Hgb Conc 32.9 g/dL (32.0-36.0); Mean Corpuscular Volume 97.2 fL (80.0-100.0); Mean Platelet Volume 12.6 fL (9.4-12.4); Platelet Count 107 K/uL (130-400); RDW Coefficient of Variation 12.4 % (11.5-14.5); RDW Standard Deviation 44.2 fL (36.4-46.3); Red Blood Count 3.88 M/uL (4.20-5.40); White Blood Count 7.69 K/ul (4.8-10.8)
[2023-06-30 07:48] LABS: Calcium 7.8 mg/dl (8.6-10.3); Potassium 3.9 mmol/L (3.5-5.1)
[2023-06-30 07:54] LABS: BUN Creatinine Ratio 15.6 (10-20); Creatinine Clr Calc Pharmacy 91.9 ml/min; Est GFR (African American) 109.7 ml/min; Est GFR (Non-African American) 94.6 ml/min
[2023-06-30] MEDS: HEPARIN SOD 5,000 UNIT/0.5 ML VIAL SQ SCH ×2 (08:05→20:15)
[2023-06-30] MEDS: PANTOprazole 40 MG in SYRINGE 0 ML IV SCH ×2 (08:05→20:15)
--- NOTE | 2023-06-30 08:44 | Surgery Progress Note ---
Date of Service June 30, 2023 Assessment & Plan (1) SBO (small bowel obstruction): Plan: Advance to full liquids today, she still has some distension but No N/V and having flatus and BM's No plans for exploration unless she is unable to tolerate diet or worsens clinically Admission and Anticipated Discharge Date Admission Date: June 22, 2023 Subjective Pt seen and examined. No abdominal pain. Still with distension, but denies N/v. Having BM's. Afebrile. Review of Systems Constitutional: no fever and no chills Physical Exam Constitutional: cooperative and comfortable; no acute distress Respiratory: normal respiratory effort and able to speak in complete sentences; no respiratory distress Cardiovascular: Rate/Rhythm: regular rate Gastrointestinal (Abdomen): Inspection/Auscultation: abdomen normal to inspection and + abdomen distended Percussion/Palpation: abdomen soft; abdomen nontender, no guarding and abdomen not rigid Results & Data Vital Signs (Past 12 Hours) Vital Signs Temp Pulse Pulse Pulse Resp BP Pulse Ox 06/30/23 07:56 37.5 C 65 16 189/75 H 93 06/30/23 07:22 64 06/30/23 03:22 37.1 C 60 16 164/70 H 94 06/29/23 23:37 36.9 C 111 H 18 176/70 H 94 06/29/23 22:01 57 L O2 Del Method 06/30/23 07:56 Room Air 06/30/23 07:22 06/30/23 03:22 Room Air 06/29/23 23:37 Room Air 06/29/23 22:01 PG Care Time/CCT Total # of Minutes Spent Total Time Spent with Patient: Total time spent is greater than 50% in coordination of care (as documented) at patient's floor/unit and/or counseling patient: Coding Level of Care Code 87794 SUB INP/OBS CARE 25MIN Diagnoses SBO (small bowel obstruction) K56.609
[2023-06-30] MEDS: LEVOTHYROXINE SODIUM 75 MCG in SYRINGE 0 ML IV SCH (09:19)
[2023-06-30] MEDS: FLUTICASONE PROPIONATE NA SPR 16 GM BTL SCH (20:15)
--- NOTE | 2023-06-30 22:33 | Hospitalist Progress Note ---
Date of Service June 30, 2023 Assessment & Plan (1) Small bowel obstruction: Plan: Presented to the hospital with Mid abdominal pain, nausea, and vomiting since 06/20 Last BM on Thursday 06/21 CT abdomen/pelvis on arrival revealed high-grade SBO General surgery consulted; nonoperative management for now Keep n.p.o.; hold p.o. meds NG tube placed on admission NG tube was removed on 06/27 Patient now passing gas Bowel follow through showed some contrast in the colon, which suggest obstruction is not complete Consulted pharmacy for Parenteral nutrition Appreciate surgery will repeat KUB in AM: on 06/29, KUb shows SBO. Patient appears clinically better on 06/30 despite no changes on imaging, patient contiues to pass gas and have BM. tolerating full liquid diet, if she continues to do well, possible discharge on 07/01 (2) VALENTIN (obstructive sleep apnea): Plan: Patient reports using CPAP at night with a full facemask No other at home oxygen use Continue Flonase prior to CPAP usage (3) Hypertension: Plan: Now under better control Not on antihypertensives at home Hydralazine 5mg IV q6h as needed for SBP >180 will d/c home on anti htn med (4) Hypothyroidism: Plan: IV Levothyroxine 50microgram Q72 Hr (5) History of mastectomy: Plan: Right-sided mastectomy in 2010 No BP, labs, blood work in right arm Plan Disposition: Admit to [facility] Full code VTE PPx: Heparin 5000u q12h Admission and Anticipated Discharge Date Admission Date: June 22, 2023 Subjective Patient reports tolerating her diet. Review of Systems Review of Systems: All systems reviewed & are unremarkable except as noted in HPI & below Physical Exam Physical Exam: HEENT--PERRL, EOMI Neck--supple. No JVD. No bruits. Thyroid normal, trachea midline, no adenopathy. Heart--normal S1 and S2. No murmurs, rubs or gallops. Lungs--clear bilaterally, no respiratory distress, no accessory muscle use. Abdomen--Hyperactive bowel sounds, ng tube in situ Extremities--no cyanosis or clubbing. No edema. Dermatologic--normal skin turgor, normal color, no abnormal lymph nodes, no rash. Neurologic--cranial nerves II through XII grossly intact. Rheumatologic--normal range of motion. Psychiatric--normal affect. Results & Data Results & Data Vital Signs (Past 12 Hours) Vital Signs Temp Pulse Pulse Resp BP Pulse Ox O2 Del Method 06/30/23 19:43 36.5 C 69 18 171/73 H 94 Room Air 06/30/23 16:02 36.9 C 62 16 166/80 H 92 Room Air 06/30/23 15:49 64 06/30/23 11:43 36.6 C 67 16 152/77 H 95 Room Air PG Care Time/CCT Total # of Minutes Spent Total Time Spent with Patient: Total time spent is greater than 50% in coordination of care (as documented) at patient's floor/unit and/or counseling patient: Coding Level of Care Code 10249 SUB INP/OBS CARE 2/35MIN Diagnoses Small bowel obstruction K56.609 VALENTIN (obstructive sleep apnea) G47.33 Hypertension I10 Hypothyroidism E03.9 History of mastectomy Z90.10
[2023-07-01] MEDS: CHECK CLONIDINE PATCH PLACEMENT SCH ×3 (00:06→16:25)
[2023-07-01 07:28] LABS: Hematocrit (blood only) 35.3 % (37.0-47.0); Hemoglobin 12.1 g/dl (12.0-16.0); Mean Corpuscular Hemoglobin 32.4 pg (25.0-34.0); Mean Corpuscular Hgb Conc 34.3 g/dL (32.0-36.0); Mean Corpuscular Volume 94.4 fL (80.0-100.0); Mean Platelet Volume 11.5 fL (9.4-12.4); Platelet Count 163 K/uL (130-400); RDW Coefficient of Variation 12.1 % (11.5-14.5); RDW Standard Deviation 42.2 fL (36.4-46.3); Red Blood Count 3.74 M/uL (4.20-5.40); White Blood Count 9.43 K/ul (4.8-10.8)
[2023-07-01] MEDS: HEPARIN SOD 5,000 UNIT/0.5 ML VIAL SQ SCH ×2 (08:18→21:20)
[2023-07-01 08:46] LABS: Calcium 8.1 mg/dl (8.6-10.3); Potassium 4.1 mmol/L (3.5-5.1)
[2023-07-01 08:51] LABS: BUN Creatinine Ratio 15.6 (10-20); Creatinine Clr Calc Pharmacy 92.6 ml/min; Est GFR (African American) 109.7 ml/min; Est GFR (Non-African American) 94.6 ml/min
--- NOTE | 2023-07-01 09:34 | Surgery Progress Note ---
Date of Service July 01, 2023 Assessment & Plan (1) SBO (small bowel obstruction): Plan: Advance to low fiber diet for today and if she tolerates this without N/V or abdominal pain she can be discharged tomorrow Will continue to follow along Admission and Anticipated Discharge Date Admission Date: June 22, 2023 Subjective Pt seen and examined. Denies abdominal pain. No N/V. Having BM's. Review of Systems Constitutional: no fever and no chills Physical Exam Constitutional: WD/WN, vitals as above Gastrointestinal (Abdomen): Inspection/Auscultation: abdomen normal to inspection and + abdomen distended (mild, improved from yesterday) Percussion/Palpation: abdomen soft; abdomen nontender and no guarding Results & Data Vital Signs (Past 12 Hours) Vital Signs Temp Pulse Pulse Pulse Resp BP Pulse Ox 07/01/23 08:02 36.4 C L 62 18 160/76 H 96 07/01/23 07:38 58 L 07/01/23 07:36 07/01/23 04:00 36.6 C 70 18 156/70 H 93 06/30/23 23:14 37.1 C 64 18 168/78 H 95 06/30/23 22:31 57 L O2 Del Method 07/01/23 08:02 Room Air 07/01/23 07:38 07/01/23 07:36 Room Air 07/01/23 04:00 Room Air 06/30/23 23:14 Room Air 06/30/23 22:31 PG Care Time/CCT Total # of Minutes Spent Total Time Spent with Patient: Total time spent is greater than 50% in coordination of care (as documented) at patient's floor/unit and/or counseling patient: Coding Level of Care Code 89334 SUB INP/OBS CARE 09/04MIN Diagnoses SBO (small bowel obstruction) K56.609
[2023-07-01] MEDS: PANTOprazole 40 MG in SYRINGE 0 ML IV SCH ×2 (09:36→21:20)
[2023-07-01] MEDS: FLUTICASONE PROPIONATE NA SPR 16 GM BTL SCH (21:20)
--- NOTE | 2023-07-01 22:15 | Hospitalist Progress Note ---
Date of Service July 01, 2023 Assessment & Plan (1) Small bowel obstruction: Plan: Presented to the hospital with Mid abdominal pain, nausea, and vomiting since 06/20 Last BM on Thursday 06/21 CT abdomen/pelvis on arrival revealed high-grade SBO General surgery consulted; nonoperative management for now Keep n.p.o.; hold p.o. meds NG tube placed on admission NG tube was removed on 06/27 Patient now passing gas Bowel follow through showed some contrast in the colon, which suggest obstruction is not complete Consulted pharmacy for Parenteral nutrition Appreciate surgery will repeat KUB in AM: on 06/29, KUb shows SBO. Patient appears clinically better on 06/30 despite no changes on imaging, patient contiues to pass gas and have BM. transitioned to low fiber diet. will monitor. Surgery prefers patient stays an additional day. (2) VALENTIN (obstructive sleep apnea): Plan: Patient reports using CPAP at night with a full facemask No other at home oxygen use Continue Flonase prior to CPAP usage (3) Hypertension: Plan: Now under better control Not on antihypertensives at home Hydralazine 5mg IV q6h as needed for SBP >180 will d/c home on anti htn med (4) Hypothyroidism: Plan: IV Levothyroxine 50microgram Q72 Hr (5) History of mastectomy: Plan: Right-sided mastectomy in 2010 No BP, labs, blood work in right arm Plan Disposition: Admit to [facility] Full code VTE PPx: Heparin 5000u q12h Admission and Anticipated Discharge Date Admission Date: June 22, 2023 Subjective Patient reports tolerating her diet. Review of Systems Review of Systems: All systems reviewed & are unremarkable except as noted in HPI & below Physical Exam Physical Exam: HEENT--PERRL, EOMI Neck--supple. No JVD. No bruits. Thyroid normal, trachea midline, no adenopathy. Heart--normal S1 and S2. No murmurs, rubs or gallops. Lungs--clear bilaterally, no respiratory distress, no accessory muscle use. Abdomen--Hyperactive bowel sounds, ng tube in situ Extremities--no cyanosis or clubbing. No edema. Dermatologic--normal skin turgor, normal color, no abnormal lymph nodes, no rash. Neurologic--cranial nerves II through XII grossly intact. Rheumatologic--normal range of motion. Psychiatric--normal affect. Results & Data Results & Data Vital Signs (Past 12 Hours) Vital Signs Temp Pulse Pulse Resp BP Pulse Ox O2 Del Method 07/01/23 19:37 36.3 C L 79 18 151/71 H 97 Room Air 07/01/23 16:45 82 07/01/23 16:31 36.5 C 62 18 153/54 H 96 Room Air 07/01/23 11:15 36.6 C 61 18 146/71 H 95 Room Air PG Care Time/CCT Total # of Minutes Spent Total Time Spent with Patient: Total time spent is greater than 50% in coordination of care (as documented) at patient's floor/unit and/or counseling patient: Coding Level of Care Code 84824 SUB INP/OBS CARE 2/35MIN Diagnoses Small bowel obstruction K56.609 VALENTIN (obstructive sleep apnea) G47.33 Hypertension I10 Hypothyroidism E03.9 History of mastectomy Z90.10
[2023-07-02] MEDS: CHECK CLONIDINE PATCH PLACEMENT SCH ×3 (00:23→15:30)
[2023-07-02 03:59] VITALS: RESP 17
[2023-07-02 07:24] LABS: BUN Creatinine Ratio 16.3 (10-20); Calcium 8.4 mg/dl (8.6-10.3); Creatinine Clr Calc Pharmacy 85.5 ml/min; Est GFR (African American) 106.6 ml/min; Hematocrit (blood only) 36.1 % (37.0-47.0); Hemoglobin 12.1 g/dl (12.0-16.0); Mean Corpuscular Hemoglobin 32.2 pg (25.0-34.0); Mean Corpuscular Hgb Conc 33.5 g/dL (32.0-36.0); Platelet Count 179 K/uL (130-400); RDW Coefficient of Variation 12.2 % (11.5-14.5); RDW Standard Deviation 42.8 fL (36.4-46.3); Red Blood Count 3.76 M/uL (4.20-5.40); White Blood Count 8.39 K/ul (4.8-10.8)
[2023-07-02] MEDS: PANTOprazole 40 MG in SYRINGE 0 ML IV SCH (08:05)
[2023-07-02] MEDS: HEPARIN SOD 5,000 UNIT/0.5 ML VIAL SQ SCH (08:06)
--- NOTE | 2023-07-02 10:30 | Surgery Progress Note ---
Date of Service July 02, 2023 Assessment & Plan (1) SBO (small bowel obstruction): Plan: pt tolerating low fiber diet Denies abd, pain Had small formed BM VSS CBC WNL patient may be discharged from a general surgical stand point. Recommending continuing low fiber diet on d/c. General surgery will sign off at this time, call with questions / concerns Admission and Anticipated Discharge Date Admission Date: June 22, 2023 Supervising Physician Co-Signing Physician Notes I personally saw and evaluated the patient with Domonique BYERS and agree with the assessment and plan 82-year-old female with a small bowel obstruction, resolved Tolerating a low fiber diet without abdominal pain Has had BM's the last few days She can be discharged from a surgical standpoint Subjective Pt seen and examined. Denies abdominal pain. No N/V. Having BM's. Review of Systems Constitutional: no fever and no chills Ear, Nose, Mouth, Throat: no hearing loss Respiratory: no cough and no dyspnea Cardiovascular: no chest pain Gastrointestinal: no abdominal pain, no nausea and no vomiting Genitourinary: no problem reported Psychiatric: no problem reported Physical Exam Physical Exam: awake alert oriented, pleasant Constitutional: cooperative and comfortable; no acute distress Respiratory: normal respiratory effort and able to speak in complete sentences; no respiratory distress Cardiovascular: Rate/Rhythm: regular rate Gastrointestinal (Abdomen): Inspection/Auscultation: abdomen normal to inspection; abdomen not distended Percussion/Palpation: abdomen soft; no guarding and abdomen not rigid Results & Data Vital Signs (Past 12 Hours) Vital Signs Temp Pulse Pulse Pulse Resp BP Pulse Ox 07/02/23 07:26 97.9 F 67 158/58 H 94 07/02/23 06:00 55 L 07/02/23 03:57 98.4 F 78 17 137/72 94 07/02/23 00:24 98.2 F 58 L 18 165/75 H 97 07/01/23 22:42 98.4 F 71 18 154/84 H 95 O2 Del Method 07/02/23 07:26 Room Air 07/02/23 06:00 07/02/23 03:57 Room Air 07/02/23 00:24 Room Air 07/01/23 22:42 Room Air PG Care Time/CCT Total # of Minutes Spent Total Time Spent with Patient: Total time spent is greater than 50% in coordination of care (as documented) at patient's floor/unit and/or counseling patient: Coding Level of Care Code 74949 SUB INP/OBS CARE Diagnoses SBO (small bowel obstruction) K56.609
[2023-07-02 11:31] VITALS: BP 128/51; TEMP 98.2; O2SAT 95
[2023-07-02 15:13] VITALS: PULSE 61
--- NOTE | 2023-07-04 09:30 | Discharge Summary ---
Date of Service July 02, 2023 Admission HPI Per Admitting Provider Mae is an 82-year-old female with PMH of HTN, breast cancer, hypothyroidism, HLD, osteopenia, VALENTIN, right-sided ovarian torsion, s/p cholecystectomy, and COPD with emphysema. She presented for abdominal pain and multiple episodes of vomiting since Friday evening 06/20. She reports that she felt stomach discomfort after eating lunch on Friday, and then started vomiting that evening. She reports no blood in the vomit, but says it was a "dark brown color". She has not been taking her usual medications due to nausea and vomiting. No morning medications. She has not been tolerating solids/liquids; however she has been tolerating sips of water. She does not endorse abdominal pain, but describes it as "discomfort" and cramping in the periumbilical region. Last BM was yesterday 06/21, and she reports that she has had 3 bowel movements between Friday and Friday. She does not know if she is passing gas regularly. She does not feel bloated. No radiation of pain to the flanks, back, or down the legs. If she had to rate her intermittent stomach discomfort she says it is a 5/10. Burping alleviates some of the tension. No sick contacts this past week. She reports using the CPAP at night with a full facemask. No other at home oxygen use. She denies smoking and tobacco use. She endorses mild alcohol use, 1 glass of wine/day. Patient is afebrile and hemodynamically stable at time of admission. ED course: Zofran 4 mg IV NSS 1000 mL ROS: Patient endorses mild fever (on Thursday 06/21 99.3), abdominal cramping/discomfort Patient denies headache, dizziness, CP, chest palpitations, pleuritic CP, hematemesis, diarrhea, blood in stool/urine, burning with urination, urinary s/s, urinary retention, saddle anesthesia, or numbness/tingling/pain in the legs. PMH of cholecystectomy, right ovarian torsion, right-sided mastectomy in 2010 No PMH of appendectomy, hernias, kidney stones, C-sections, KS, DVT/PE, CVA, or diabetes. Discharge Exam HEENT--PERRL, EOMI Neck--supple. No JVD. No bruits. Thyroid normal, trachea midline, no adenopathy. Heart--normal S1 and S2. No murmurs, rubs or gallops. Lungs--clear bilaterally, no respiratory distress, no accessory muscle use. Abdomen--Hyperactive bowel sounds, ng tube in situ Extremities--no cyanosis or clubbing. No edema. Dermatologic--normal skin turgor, normal color, no abnormal lymph nodes, no rash. Neurologic--cranial nerves II through XII grossly intact. Rheumatologic--normal range of motion. Psychiatric--normal affect. Discharge Data Allergies Allergy/AdvReac Type Severity Reaction Status Date / Time chocolate flavor AdvReac Mild HEADACHE/DI Verified 06/04/23 14:01 ARRHEA cat dander AdvReac Verified 06/04/23 14:01 dog dander AdvReac Verified 06/04/23 14:01 grass pollen AdvReac Verified 06/04/23 14:01 mold AdvReac Verified 06/04/23 14:01 tree and shrub pollen AdvReac Verified 06/04/23 14:01 Consultations 06/22/23 13:44 Consult General Surgery Routine 06/22/23 13:47 ED Decision to Admit Stat 06/26/23 10:23 Consult Gastroenterology Routine Procedures Performed Operation Date: 06/26/23 09:50 <No data on this case meets the specified criteria> Ordered Studies 06/22/23 12:00 CT Abd and Pelvis [CT abd pelvis IV con only] Stat 06/25/23 11:28 FL small bowel follow through Urgent Hospital Course (1) Small bowel obstruction: Presented to the hospital with Mid abdominal pain, nausea, and vomiting since 06/20 Last BM on Thursday 06/21 CT abdomen/pelvis on arrival revealed high-grade SBO General surgery consulted; nonoperative management for now Keep n.p.o.; hold p.o. meds NG tube placed on admission NG tube was removed on 06/27 Patient now passing gas Bowel follow through showed some contrast in the colon, which suggest obstruction is not complete Consulted pharmacy for Parenteral nutrition Appreciate surgery will repeat KUB in AM: on 06/29, KUb shows SBO. Patient appears clinically better on 06/30 despite no changes on imaging, patient contiues to pass gas and have BM. transitioned to low fiber diet. will monitor. Surgery prefers patient stays an additional day. (2) VALENTIN (obstructive sleep apnea): Patient reports using CPAP at night with a full facemask No other at home oxygen use Continue Flonase prior to CPAP usage (3) Hypertension: Now under better control Not on antihypertensives at home Hydralazine 5mg IV q6h as needed for SBP >180 will d/c home on anti htn med (4) Hypothyroidism: IV Levothyroxine 50microgram Q72 Hr (5) History of mastectomy: Right-sided mastectomy in 2010 No BP, labs, blood work in right arm Plan Disposition: Admit to [facility] Full code VTE PPx: Heparin 5000u q12h Discharge Plan Discharge Items Patient Disposition: Home - Self-Care Reason For Visit: VOMITING, SBO Discharge Diagnosis: vomiting, small bowel obstruction Activity: Resume your previous activity Non-emergency contact: Primary Care Provider Call non-emergency contact if: you have any medication questions Follow-up/Referrals: Martinez Nogueira MD [Primary Care Provider] - 07/09/23 9:00 am Diet: Low Fiber Addtl Attending Provider Instructions: Will recommend you continue on a low fiber diet. Will defer to your PCP when to increase your fiber intake. Given your blood pressure, will recommend starting lisinopril 2.5 mg PO PM. Will also start amlodipine 2.5 mg in the evening as well. This medicine will also help with your Raynauds. Lisinopril can sometimes cause a dry cough. Recommend followup with your PCP in 1-2 weeks. Pending Studies at Discharge: No Stand-Alone Forms: My [facility], Smoking Cessation Medications and DC Order Prescriptions: New lisinopril 2.5 mg tablet 2.5 mg PO PM Qty: 30 0RF amlodipine 2.5 mg tablet 2.5 mg PO PM Qty: 30 0RF Continued levothyroxine 100 mcg tablet 100 mcg PO DAILY Qty: 90 3RF (DME) blood pressure monitor [Blood Pressure Kit] Kit See Rx Instructions .Route Qty: 1 0RF Rx Instructions: As directed cholecalciferol (vitamin D3) 50 mcg (2,000 unit) capsule 50 mcg PO DAILY evening primrose oil 500 mg Capsule 500 mg PO DAILY cetirizine [Zyrtec] 10 mg Tablet 10 mg PO DAILY PRN (Reason: NEEDED) lecithin 1,200 mg Capsule 1,200 mg PO DAILY omega [id number] oil [Fish Oil] 1,000 mg (120 mg-180 mg) Capsule 1 cap PO DAILY selenium 200 mcg Capsule 200 mcg PO DAILY resveratrol 50 mg Capsule 1 cap PO DAILY coQ10 (ubiquinol) 100 mg Capsule 100 mg PO DAILY Probiotic 10 billion cell Capsule 1 cap PO DAILY ascorbic acid (vitamin C) [Vitamin C] 500 mg tablet 500 mg PO DAILY cyanocobalamin (vitamin B-12) 2,500 mcg tablet, sublingual 2,500 mcg SUBLINGUAL WK aspirin [Aspir-Low] 81 mg tablet,delayed release (DR/EC) 81 mg PO HS Rx Instructions: 3 times a week red yeast rice 600 mg capsule 600 mg PO 4XD fluticasone propionate [Flonase Allergy Relief] 50 mcg/actuation spray,suspension 2 spray INTRANASAL HS Discharge Orders: Discharge Order (Routine); Ordered 07/02/23 Ordered By: Telly Acuna/Other Patient Handouts: Low-Fiber Diet Admission Data Admit Date/Time: 06/22/23 15:10 Attending Provider: Telly Lopes Admit Provider: Yao Chu Primary Care Provider: Martinez Nogueira Other Providers: Jose Monsivais; Yao Chu; John Antoine Jr Other Interventions: Discharge Summary Assessment (RN) Last Done: 07/02/23 15:12 Coding Diagnoses Small bowel obstruction K56.609 VALENTIN (obstructive sleep apnea) G47.33 Hypertension I10 Hypothyroidism E03.9 History of mastectomy Z90.10
== END 2023-07-02 16:28 | disposition home or self-care (01) | DRG 390 ==
LOC: ED 10:01 → SUATTDRO 15:10 → 3N 15:10 → 1E 06-23 05:33 → 2N 06-26 23:53
DX: Z85.3 Personal history of malignant neoplasm of breast; K56.51 Intestinal adhesions [bands], with partial obstruction; E78.5 Hyperlipidemia, unspecified; J43.9 Emphysema, unspecified; Z87.891 Personal history of nicotine dependence; Z90.11 Acquired absence of right breast and nipple; E03.9 Hypothyroidism, unspecified; I10 Essential (primary) hypertension; G47.33 Obstructive sleep apnea (adult) (pediatric)